=== PATIENT | female | born 1945 | race Caucasian/White ===

== ENCOUNTER 2016-10-23 16:28 | Emergency (ER) | payer BC ==
[~2016-10-23] VITALS: Ht 165.1 cm; Wt 64.0 kg
[2016-10-23 16:28] VITALS: TEMP 36.3; Ht 165.1 cm; Wt 64.0 kg
[2016-10-23] MEDS ORDERED: SODIUM CHLORIDE 0.9% 1000ML 1,000 ML IV STA (16:44)
[2016-10-23 17:02] LABS: HEMATOCRIT 39.4 % (37-47); MEAN CELL VOLUME 90.8 fL (80-100); MEAN CORPUSCULAR HEMOGLOBIN 31.8 pg (25-34); MEAN PLATELET VOLUME 9.3 fL (7.4-10.4); PLATELET COUNT 226 K/uL (130-400); RED BLOOD COUNT 4.34 M/uL (4.2-5.4); WHITE BLOOD COUNT 6.97 K/uL (4.8-10.8)
[2016-10-23 17:11] LABS: PARTIAL THROMBOPLASTIN RATIO 0.9; PROTHROMBIN TIME (PATIENT) 11.2 SECONDS (9.0-12.0)
[2016-10-23 17:19] LABS: ALT/SGPT 33 U/L (12-78); AST/SGOT 26 U/L (15-37); BLOOD UREA NITROGEN 22 mg/dl (7-18); BUN/CREATININE RATIO 33.1 (10-20); CALCIUM 8.9 mg/dl (8.5-10.1); CARBON DIOXIDE 23 mmol/L (21-32); CHLORIDE 104 mmol/L (98-107); CREATININE 0.66 mg/dl (0.60-1.20); GLUCOSE 92 mg/dl (70-99); SODIUM 140 mmol/L (136-145)
[2016-10-23 17:21] LABS: BASO % 0.3 %; BASO ABS # 0.02 K/uL (0-0.2); COMPLETE YES; LYMPH % 17.9 %; LYMPH ABS # 1.25 K/uL (1.2-3.4); MONO % 8.8 %
[2016-10-23] MEDS ORDERED: ZINC1TAB PO (17:24)
[2016-10-23] MEDS ORDERED: MULT-188 PO (17:24)
[2016-10-23] MEDS ORDERED: CYCL0.052 OP (17:24)
[2016-10-23] MEDS ORDERED: CALC-51 PO (17:24)
[2016-10-23] MEDS ORDERED: DOXY100T PO (17:24)
[2016-10-23] MEDS ORDERED: B-CO1CAP17 PO (17:24)
[2016-10-23] MEDS ORDERED: ASCO250C3 PO (17:24)
[2016-10-23] MEDS ORDERED: CHOL1000 PO (17:24)
[2016-10-23] MEDS ORDERED: MAGN400T6 PO (17:24)
[2016-10-23] MEDS ORDERED: ASPI325T39 PO (17:24)
[2016-10-23] MEDS ORDERED: OMEG10007 PO (17:24)
[2016-10-23 17:27] LABS: ALKALINE PHOSPHATASE 76 U/L (45-117); CKMB/CK RATIO 6.5 (0-3.0)
--- NOTE | 2016-10-23 17:38 | DIAGNOSTIC IMAGING REPORT ---
CHEST ONE VIEW PORTABLE CLINICAL HISTORY: Altered mental status, weakness. COMPARISON STUDY: No previous studies for comparison. FINDINGS: The heart is mildly enlarged. There is mild interstitial thickening. There is no lobar consolidation. There are no pleural effusions.[ IMPRESSION: Cardiomegaly and mild interstitial thickening. No evidence of focal pulmonary consolidation Electronically signed by: Ravin Joy M.D. 10/23/2016 5:36 PM Dictated Date/Time: 10/23/2016 5:36 PM
[2016-10-23 18:02] LABS: URINE APPEARANCE CLEAR (CLEAR); URINE BILIRUBIN NEG (NEG); URINE COLOR YELLOW; URINE NITRITE NEG (NEG); URINE PH 5.5 (4.5-7.5); URINE SPECIFIC GRAVITY 1.006 (1.000-1.030); UROBILINOGEN NEG (NEG); ZZUR CULT IF INDIC CLEAN CATCH NO
[2016-10-23 18:03] LABS: MANUAL MICROSCOPIC REQUIRED? NO; REVIEW REQ? NO
--- NOTE | 2016-10-23 19:17 | DIAGNOSTIC IMAGING REPORT ---
ULTRASOUND OF THE CAROTID ARTERIES CLINICAL HISTORY: Right facial and hand numbness COMPARISON STUDY: None. TECHNIQUE: Real-time, grayscale, and color Doppler sonography of the carotid arteries was performed. Imaging reviewed in the transverse and longitudinal planes. NASCET criteria was utilized for stenosis calcification. FINDINGS: There is minimal atherosclerotic plaque present . The peak systolic velocity within the right internal carotid artery is 53 cm/sec. The systolic velocity ratio of right internal to common carotid artery is 0.7. The peak systolic velocity within the left internal carotid artery is 78 cm/sec. The systolic velocity ratio left internal to common carotid artery is 0.8. Antegrade flow is seen in the vertebral arteries. The external carotid arteries are patent. Blood pressure in the right arm measured 142 mm/Hg. Blood pressure in the left arm measured 155 mm/Hg. IMPRESSION: No evidence of hemodynamically significant carotid stenosis. Electronically signed by: Ravin Joy M.D. 10/23/2016 7:15 PM Dictated Date/Time: 10/23/2016 7:14 PM
--- NOTE | 2016-10-23 19:36 | DIAGNOSTIC IMAGING REPORT ---
MRI OF THE BRAIN WITHOUT CONTRAST CLINICAL HISTORY: Right hand and facial numbness. Possible stroke. COMPARISON STUDY: None. FINDINGS: Sagittal T1, axial diffusion, proton density and T2 weighted axial, coronal FLAIR, and axial T1-weighted images were acquired. No intra or extra-axial mass lesions are visualized Axial diffusion-weighted images reveal no evidence of acute or subacute infarction. There is no evidence of ventricular dilatation. Proton density T2-weighted and FLAIR images reveal scattered foci of increased T2 signal within the white matter, likely on a small vessel basis. There are no abnormal flow voids. IMPRESSION: 1. No acute intracranial findings 2. No evidence of acute or subacute infarction 3. No evidence of intracranial mass on this noncontrast study Electronically signed by: Ravin Joy M.D. 10/23/2016 7:35 PM Dictated Date/Time: 10/23/2016 7:32 PM
[2016-10-23 19:42] VITALS: BP 167/112; PULSE 70; O2SAT 97
--- NOTE | 2016-10-23 20:02 | EMERGENCY ROOM VISIT NOTE ---
History Report prepared by Henry: Kenney Santana Under the Supervision of: Dr. Chau Ragsdale D.O. First contact with patient: 16:34 Chief Complaint: STROKE SYMPTOMS Stated Complaint: STROKE History of Present Illness The patient is a 71 year old female who presents to the Emergency Room with complaints of improving stroke symptoms occurring around 1400 today after climbing a hill on her bike. The patient states that she was biking with friends like usual, and after a difficult part she started having numbness and weakness in her right hand, arm, and face. She states that afterwards she biked home another 25 miles afterwards, and she states that her strength was not as great as usual. She states that her numbness is now only in her hands, and she took aspirin when she got home. The patient additionally states that she was bit by a tick 5-6 days ago, and it was taken out by her doctor, and she was put on antibiotics. Additionally, she states that she had a stroke in 1999, and she has a clotting disorder and sciatica. The patient states that she has a few drinks a day, though she denies drinking or any daily medications. Source of History: patient Onset: 1400 Position: other (global) Quality: other (stroke symptoms) Timing: other (improving) Associated Symptoms: + fatigue Note: Associated symptoms: Right hand, arm and facial weakness. Review of Systems See HPI for pertinent positives & negatives. A total of 10 systems reviewed and were otherwise negative. Past Medical & Surgical Medical Problems: (1) Clotting disorder (2) Sciatica Family History Diabetes mellitus Social History Smoking Status: Former Smoker Alcohol Use: occasionally Marital Status: Occupation Status: employed Current/Historical Medications Scheduled Ascorbic Acid (Vitamin C), 1 TAB PO DAILY Aspirin (Aspirin Ec), 650 MG PO TODAY Calcium Carbonate-Vitamin D (Calcium), 1 TAB PO BID Cholecalciferol (Vitamin D3), 1 TAB PO DAILY Cyclosporine (Ophth) (Restasis), 1 DROP OP BID Doxycycline Hyclate (Doxycycline Hyclate), 1 TAB PO BID Fish Oil (Goodhue-3), 3 CAP PO DAILY Magnesium Oxide (Mag-Ox), 400 MG PO DAILY Multiple Vitamins W/ Minerals (Ocuvite), 1 TAB PO DAILY Vitamin B Cmplx/Vitc/Folic Ac (Nephrocaps), 1 CAP PO DAILY Zinc Gluconate (Zinc), 1 TAB PO DAILY Allergies Coded Allergies: Cefuroxime (Verified Allergy, Intermediate, RASH, 10/23/16) Physical Exam Vital Signs Date Time Temp Pulse Resp B/P Pulse Ox O2 Delivery O2 Flow Rate FiO2 10/23/16 19:42 70 18 167/112 97 Room Air 10/23/16 17:45 136/100 10/23/16 17:43 76 94 10/23/16 17:15 146/95 10/23/16 17:13 75 96 10/23/16 17:03 137/94 10/23/16 17:02 82 18 137/94 94 Room Air 10/23/16 17:01 136/102 10/23/16 16:58 84 10/23/16 16:44 87 10/23/16 16:43 88 10/23/16 16:28 36.3 93 20 172/113 98 Room Air Physical Exam VITAL SIGNS: were reviewed as above. GENERAL:Non-toxic in appearance. SKIN: Warm dry and pink. HEAD: Normocephalic and atraumatic. OROPHARYNX: Is clear and moist NECK: Supple without lymphadenopathy or meningismus. LUNGS: clear. HEART: Regular rate and rhythm. ABDOMEN: Soft and nontender. EXTREMITIES: Warm and well perfused. NEUROLOGICALLY: Awake alert and oriented without focal deficit. Cranial nerves 2 -12 are intact. There is no pronator drift. Cerebellar testing is within normal limits. There is no nystagmus. There is no facial droop. Speech is clear. Vision is grossly normal. MUSCULOSKELETAL: Good muscle tone. No evidence of trauma. Medical Decision & Procedures ER Provider Diagnostic Interpretation: Radiology results as stated below per my review and radiologist interpretation: CHEST ONE VIEW PORTABLE CLINICAL HISTORY: Altered mental status, weakness. COMPARISON STUDY: No previous studies for comparison. FINDINGS: The heart is mildly enlarged. There is mild interstitial thickening. There is no lobar consolidation. There are no pleural effusions.[ IMPRESSION: Cardiomegaly and mild interstitial thickening. No evidence of focal pulmonary consolidation Electronically signed by: Ravin Joy M.D. 10/23/2016 5:36 PM Dictated Date/Time: 10/23/2016 5:36 PM MRI OF THE BRAIN WITHOUT CONTRAST CLINICAL HISTORY: Right hand and facial numbness. Possible stroke. COMPARISON STUDY: None. FINDINGS: Sagittal T1, axial diffusion, proton density and T2 weighted axial, coronal FLAIR, and axial T1-weighted images were acquired. No intra or extra-axial mass lesions are visualized Axial diffusion-weighted images reveal no evidence of acute or subacute infarction. There is no evidence of ventricular dilatation. Proton density T2-weighted and FLAIR images reveal scattered foci of increased T2 signal within the white matter, likely on a small vessel basis. There are no abnormal flow voids. IMPRESSION: 1. No acute intracranial findings 2. No evidence of acute or subacute infarction 3. No evidence of intracranial mass on this noncontrast study Electronically signed by: Ravin Joy M.D. 10/23/2016 7:35 PM Dictated Date/Time: 10/23/2016 7:32 PM ULTRASOUND OF THE CAROTID ARTERIES CLINICAL HISTORY: Right facial and hand numbness COMPARISON STUDY: None. TECHNIQUE: Real-time, grayscale, and color Doppler sonography of the carotid arteries was performed. Imaging reviewed in the transverse and longitudinal planes. NASCET criteria was utilized for stenosis calcification. FINDINGS: There is minimal atherosclerotic plaque present . The peak systolic velocity within the right internal carotid artery is 53 cm/sec. The systolic velocity ratio of right internal to common carotid artery is 0.7. The peak systolic velocity within the left internal carotid artery is 78 cm/sec. The systolic velocity ratio left internal to common carotid artery is 0.8. Antegrade flow is seen in the vertebral arteries. The external carotid arteries are patent. Blood pressure in the right arm measured 142 mm/Hg. Blood pressure in the left arm measured 155 mm/Hg. IMPRESSION: No evidence of hemodynamically significant carotid stenosis. Electronically signed by: Ravin Joy M.D. 10/23/2016 7:15 PM Dictated Date/Time: 10/23/2016 7:14 PM Laboratory Results 10/23/16 16:49 Red Blood Count 4.34, Mean Corpuscular Volume 90.8, Mean Corpuscular Hemoglobin 31.8, Mean Corpuscular Hemoglobin Concent 35.0, Mean Platelet Volume 9.3, Neutrophils (%) (Auto) 72.0, Lymphocytes (%) (Auto) 17.9, Monocytes (%) (Auto) 8.8, Eosinophils (%) (Auto) 1.0, Basophils (%) (Auto) 0.3, Neutrophils # (Auto) 5.02, Lymphocytes # (Auto) 1.25, Monocytes # (Auto) 0.61, Eosinophils # (Auto) 0.07, Basophils # (Auto) 0.02 10/23/16 16:49 Test 10/23/16 16:49 10/23/16 17:45 White Blood Count 6.97 K/uL (4.8-10.8) Red Blood Count 4.34 M/uL (4.2-5.4) Hemoglobin 13.8 g/dL (12.0-16.0) Hematocrit 39.4 % (37-47) Mean Corpuscular Volume 90.8 fL (80-100) Mean Corpuscular Hemoglobin 31.8 pg (25-34) Mean Corpuscular Hemoglobin Concent 35.0 g/dl (32-36) Platelet Count 226 K/uL (130-400) Mean Platelet Volume 9.3 fL (7.4-10.4) Neutrophils (%) (Auto) 72.0 % Lymphocytes (%) (Auto) 17.9 % Monocytes (%) (Auto) 8.8 % Eosinophils (%) (Auto) 1.0 % Basophils (%) (Auto) 0.3 % Neutrophils # (Auto) 5.02 K/uL (1.4-6.5) Lymphocytes # (Auto) 1.25 K/uL (1.2-3.4) Monocytes # (Auto) 0.61 K/uL (0.11-0.59) Eosinophils # (Auto) 0.07 K/uL (0-0.5) Basophils # (Auto) 0.02 K/uL (0-0.2) RDW Standard Deviation 44.6 fL (36.4-46.3) RDW Coefficient of Variation 13.5 % (11.5-14.5) Immature Granulocyte % (Auto) 0.0 % Immature Granulocyte # (Auto) 0.00 K/uL (0.00-0.02) Prothrombin Time 11.2 SECONDS (9.0-12.0) Prothromb Time International Ratio 1.0 (0.9-1.1) Activated Partial Thromboplast Time 23.4 SECONDS (21.0-31.0) Partial Thromboplastin Ratio 0.9 Anion Gap 13.0 mmol/L (3-11) Est Creatinine Clear Calc Drug Dose 72.4 ml/min Estimated GFR () 104.5 Estimated GFR (Non- 90.1 BUN/Creatinine Ratio 33.1 (10-20) Calcium Level 8.9 mg/dl (8.5-10.1) Magnesium Level 2.0 mg/dl (1.8-2.4) Total Bilirubin 0.5 mg/dl (0.2-1) Direct Bilirubin 0.1 mg/dl (0-0.2) Aspartate Amino Transf (AST/SGOT) 26 U/L (15-37) Alanine Aminotransferase (ALT/SGPT) 33 U/L (12-78) Alkaline Phosphatase 76 U/L (45-117) Total Creatine Kinase 126 U/L (26-192) Creatine Kinase MB 8.2 ng/ml (0.5-3.6) Creatine Kinase MB Ratio 6.5 (0-3.0) Troponin I < 0.015 ng/ml (0-0.045) Total Protein 7.1 gm/dl (6.4-8.2) Albumin 3.9 gm/dl (3.4-5.0) Lipase 148 U/L (73-393) Thyroid Stimulating Hormone (TSH) 2.040 uIu/ml (0.300-4.500) Urine Color YELLOW Urine Appearance CLEAR (CLEAR) Urine pH 5.5 (4.5-7.5) Urine Specific [place] 1.006 (1.000-1.030) Urine Protein NEG (NEG) Urine Glucose (UA) NEG (NEG) Urine Ketones NEG (NEG) Urine Occult Blood NEG (NEG) Urine Nitrite NEG (NEG) Urine Bilirubin NEG (NEG) Urine Urobilinogen NEG (NEG) Urine Leukocyte Esterase SMALL (NEG) Urine WBC (Auto) 1-5 /hpf (0-5) Urine RBC (Auto) 0-4 /hpf (0-4) Urine Hyaline Casts (Auto) 0 /lpf (0-5) Urine Epithelial Cells (Auto) 10-20 /lpf (0-5) Urine Bacteria (Auto) NEG (NEG) Laboratory results as stated above per my review. Medications Administered Medications (Trade) Dose Ordered Sig/Ami Route Start Time Stop Time Status Last Admin Dose Admin Sodium Chloride (Nss 1000ml) 1,000 ml @ 999 mls/hr Q1H1M STAT IV 10/23/16 16:44 10/23/16 17:44 DC 10/23/16 16:58 999 MLS/HR ECG Indication: other (stroke symptoms) Rate (beats per minute): 76 Rhythm: normal sinus Findings: no acute ischemic change, no ectopy ED Course 1634: Previous medical records were reviewed. The patient was evaluated in room B9. A complete history and physical examination was performed. 1644: Sodium Chloride 1000 ml @ 999 mls/hr IV 2004: On reevaluation, the patient is resting. I discussed the results and findings with the patient. She verbalized agreement of the treatment plan. She was discharged home. Medical Decision Differential includes acute coronary syndrome, myocardial infarction, CVA, TIA, anemia, infection, pneumonia, UTI, pyelonephritis, poor nutrition, dehydration, electrolyte disturbance,hypoglycemia. This is a 71-year-old female who presents to the ED with a chief complaint of some tingling in the right hand and some numbness in the right cheek area while riding a bicycle. The patient states that around 2 PM today she was riding her bicycle up a hard heel. She developed the right hand tingling and right face tingling around that time. It persisted and around 1600 she got home. She came in for evaluation of her symptoms. Most of her symptoms have improved except for she has now some tingling in her right middle finger. She has no other specific complaints. She is currently on doxycycline for a recent tick exposure. This was about a week ago. The patient's current blood pressure was elevated when she arrived. It was 172/113. A complete neurological exam was unremarkable. Repeat blood pressure about a half-hour after she arrived was normal. Her CBC is normal. Chemistry panel revealed an elevated BUN of 22. MRI of the brain did not show any acute process. Carotid ultrasounds also did not show any hemodynamic compromise. The patient was told the results. She is felt to be stable for discharge. She only reports residual numbness in the right middle finger at this time. No facial symptoms. Impression Primary Impression: Paresthesia of hand Additional Impression: Facial paresthesia Scribe Attestation The scribe's documentation has been prepared under my direction and personally reviewed by me in its entirety. I confirm that the note above accurately reflects all work, treatment, procedures, and medical decision making performed by me. Departure Information Dispostion Home / Self-Care Referrals Darrin Santizo M.D. (PCP) Forms HOME CARE DOCUMENTATION FORM, IMPORTANT VISIT INFORMATION Patient Instructions My [facility] Additional Instructions Follow-up with your doctor for further care and evaluation in 1-2 days. Return to the emergency department for worsening or new symptoms or any concerns. You have been examined and treated today on an emergency basis only. This is not a substitute for, or an effort to provide, complete comprehensive medical care. It is impossible to recognize and treat all injuries or illnesses in a single emergency department visit. It is therefore important that you follow up closely with your doctor. Call as soon as possible for an appointment. Problem Qualifiers
== END 2016-10-23 20:10 | disposition home or self-care (01) ==
LOC: C.EDB 16:28
DX: R20.2 Paresthesia of skin (principal); D68.9 Coagulation defect, unspecified; M54.30 Sciatica, unspecified side; Z83.3 Family history of diabetes mellitus; Z87.891 Personal history of nicotine dependence; Z79.82 Long term (current) use of aspirin; Z79.899 Other long term (current) drug therapy

== ENCOUNTER → 2016-10-24 | Outpatient (CLI) | payer BC ==
[~2016-10-24] MED LIST: ASCO250C3 PO; ASPI325T39 PO; ASPI81TA28 PO; B-CO1CAP17 PO; CALC-51 PO; CHOL1000 PO; CYCL0.052 OP; DOXY100T PO; LEVE500T PO; MAGN400T6 PO; MULT-188 PO; OMEG10007 PO; PHYT100T PO; VITBC PO; ZINC1TAB PO
[2016-10-24 18:43] LABS: HEMATOCRIT 39.3 % (37-47); MEAN CELL VOLUME 91.8 fL (80-100); MEAN CORPUSCULAR HEMOGLOBIN 32.5 pg (25-34); MEAN CORPUSCULAR HGB CONC 35.4 g/dl (32-36); MEAN PLATELET VOLUME 9.7 fL (7.4-10.4); PLATELET COUNT 231 K/uL (130-400); RED BLOOD COUNT 4.28 M/uL (4.2-5.4); WHITE BLOOD COUNT 4.08 K/uL (4.8-10.8)
--- NOTE | 2016-10-24 18:43 | DIAGNOSTIC IMAGING REPORT ---
LEFT LOWER EXTREMITY VENOUS DOPPLER CLINICAL HISTORY: Left leg pain and swelling. COMPARISON STUDY: No previous studies for comparison. TECHNIQUE: Sonography of the deep venous system of the left lower extremity was performed. Compression and augmentation were evaluated. FINDINGS: The left common femoral, superficial femoral and popliteal veins were compressible. Augmentation was normal. Flow was shown within the deep calf vessels. IMPRESSION: No evidence of deep venous thrombus within the left lower extremity. Electronically signed by: Andres Olivares M.D. 10/24/2016 6:42 PM Dictated Date/Time: 10/24/2016 6:42 PM
[2016-10-24 19:36] LABS: POTASSIUM 4.1 mmol/L (3.5-5.1); SODIUM 141 mmol/L (136-145)
[2016-10-24 19:41] LABS: AST/SGOT 26 U/L (15-37)
[2016-10-24 19:42] LABS: ALB/GLOB RATIO 1.3 (0.9-2); ALKALINE PHOSPHATASE 75 U/L (45-117); ALT/SGPT 32 U/L (12-78); BLOOD UREA NITROGEN 18 mg/dl (7-18); CALCIUM 9.1 mg/dl (8.5-10.1); CARBON DIOXIDE 28 mmol/L (21-32); CHLORIDE 104 mmol/L (98-107); CHOLESTEROL 201 mg/dl (0-200); CREATININE 0.68 mg/dl (0.60-1.20); GLUCOSE 85 mg/dl (70-99); HDL CHOLESTEROL 101 mg/dl; LDL CHOLESTEROL CALCULATED 80 mg/dl; TRIGLYCERIDES 101 mg/dl (0-150); VERY LOW DENSITY LIPOPROT CALC 20 mg/dl
[2016-10-27 12:07] LABS: 18KDIGG BAND NONREACTIVE (NONREACTIVE); 23KDIGG BAND REACTIVE (NONREACTIVE); 23KDIGM BAND NONREACTIVE (NONREACTIVE); 28KDIGG BAND NONREACTIVE (NONREACTIVE); 30KDIGG BAND NONREACTIVE (NONREACTIVE); 39KDIGG BAND NONREACTIVE (NONREACTIVE); 39KDIGM BAND NONREACTIVE (NONREACTIVE); 41KDIGG BAND REACTIVE (NONREACTIVE); 41KDIGM BAND NONREACTIVE (NONREACTIVE); 45KDIGG BAND REACTIVE (NONREACTIVE); 58KDIGG BAND NONREACTIVE (NONREACTIVE); 66KDIGG BAND NONREACTIVE (NONREACTIVE); 93KDIGG BAND NONREACTIVE (NONREACTIVE)
--- NOTE | 2016-10-28 13:34 | CODING QUERY MEDICAL NECESSITY ---
SUPPORTING DIAGNOSIS NEEDED A supporting diagnosis is required for the test/procedure performed on this patient in order for us to be reimbursed by the patient's insurance. Please provide a supporting diagnosis for the following test/procedure listed below next to the test name along with your signature. *If there is no additional diagnosis for this patient that would support the following test/procedure please document that below next to the test/procedure. Test(s)/Procedure(s) that require a supporting diagnosis: * VITAMIN B-12 LEVEL DIAGNOSIS: * DOS: 10/24/16 Provider Signature: Date: Thank you Francie Salinas Health Information Management Once completed, please kindly fax back to [phone] For questions please call [phone]
== END | disposition home or self-care (01) ==
LOC: C.ULTR 17:53
PROVIDERS: ATTEND Family Medicine
DX: M79.605 Pain in left leg (principal); R60.0 Localized edema; A69.20 Lyme disease, unspecified; M25.50 Pain in unspecified joint; D51.9 Vitamin B12 deficiency anemia, unspecified

== ENCOUNTER 2016-10-30 12:15 | Inpatient (IN) | payer BC, OTHER ==
[~2016-10-30] VITALS: Ht 165.1 cm; Wt 61.6 kg
[~2016-10-30 12:15] MED LIST changes: -ASPI81TA28 PO; -LEVE500T PO; -PHYT100T PO; -VITBC PO
[2016-10-30] MEDS ORDERED: SODIUM CHLORIDE 0.9% 1000ML 1,000 ML IV SCH (12:36)
[2016-10-30] MEDS ORDERED: VITBC PO (12:43)
[2016-10-30] MEDS ORDERED: ASPI81TA28 PO (12:43)
[2016-10-30] MEDS ORDERED: PHYT100T PO (12:43)
[2016-10-30 13:05] LABS: BASO % 0.3 %; BASO ABS # 0.01 K/uL (0-0.2); COMPLETE YES; EOS % 3.6 %; HEMATOCRIT 43.3 % (37-47); IG% 0.3 %; LYMPH % 46.3 %; LYMPH ABS # 1.69 K/uL (1.2-3.4); MEAN CELL VOLUME 92.1 fL (80-100); MEAN CORPUSCULAR HEMOGLOBIN 32.8 pg (25-34); MEAN CORPUSCULAR HGB CONC 35.6 g/dl (32-36); MEAN PLATELET VOLUME 9.7 fL (7.4-10.4); MONO % 8.2 %; NEUT % 41.3 %; PLATELET COUNT 250 K/uL (130-400); WHITE BLOOD COUNT 3.65 K/uL (4.8-10.8)
--- NOTE | 2016-10-30 13:10 | DIAGNOSTIC IMAGING REPORT ---
CHEST ONE VIEW PORTABLE CLINICAL HISTORY: Stroke. COMPARISON STUDY: Chest radiograph October 23, 2016. FINDINGS: A nodular density projecting of the right lower lung likely reflects a nipple shadow. Lung volumes are normal. There is no consolidation or evidence of pulmonary edema. Mild to moderate cardiomegaly is noted. IMPRESSION: No acute cardiopulmonary findings. Electronically signed by: Andres Olivares M.D. 10/30/2016 1:08 PM Dictated Date/Time: 10/30/2016 1:06 PM
[2016-10-30 13:14] LABS: INR 1.1 (0.9-1.1); PARTIAL THROMBOPLASTIN RATIO 0.9; PROTHROMBIN TIME (PATIENT) 11.3 SECONDS (9.0-12.0)
[2016-10-30 13:23] LABS: BENZODIAZEPINE, URINE NEG (NEG); COCAINE,URINE NEG (NEG); PHENCYCLIDINE, URINE NEG (NEG)
[2016-10-30 13:33] LABS: BLOOD UREA NITROGEN 11 mg/dl (7-18); CALCIUM 9.4 mg/dl (8.5-10.1); CARBON DIOXIDE 31 mmol/L (21-32); CHLORIDE 100 mmol/L (98-107); CKMB/CK RATIO 6.6 (0-3.0); CREATININE 0.76 mg/dl (0.60-1.20); GLUCOSE 115 mg/dl (70-99); POTASSIUM 3.9 mmol/L (3.5-5.1); SODIUM 139 mmol/L (136-145)
--- NOTE | 2016-10-30 13:44 | DIAGNOSTIC IMAGING REPORT ---
CT OF THE HEAD WITHOUT CONTRAST CLINICAL HISTORY: Right facial droop and numbness. Stroke. COMPARISON STUDY: MRI of the brain October 23, 2016. CT DOSE: 537.48 mGy.cm TECHNIQUE: Helical axial images of the head were obtained without IV contrast. Automated exposure control was utilized for the study. FINDINGS: No acute intracranial hemorrhage, midline shift or mass effect is present. Ventricular system is normal. Basilar cisterns are patent. There are no extra-axial collections. There are no CT findings to suggest acute dural sinus thrombosis or acute territorial infarct. Visualized portions of the sinuses and mastoid air cells are clear. IMPRESSION: No acute intracranial findings. Electronically signed by: Andres Olivares M.D. 10/30/2016 1:42 PM Dictated Date/Time: 10/30/2016 1:40 PM
[2016-10-30] MEDS ORDERED: CLOPIDOGREL BISULFATE 75 MG TAB PO ONE (14:30)
[2016-10-30] MEDS ORDERED: ONDANSETRON INJ 2 MG/ML 2 ML VIAL IV PRN (14:45)
[2016-10-30] MEDS ORDERED: PHARMACIST DISCHARGE MED REC CONSULT PRN (14:45)
[2016-10-30] MEDS ORDERED: ALUMINUM/MAGNESIUM/SIMETH (MAALOX MAX) 30 ML UDC PO PRN (14:45)
[2016-10-30] MEDS ORDERED: MAGNESIUM HYDROXIDE SUSP 30 ML UDC PO PRN (14:45)
[2016-10-30] MEDS ORDERED: ACETAMINOPHEN 325 MG TAB PO PRN (14:45)
[2016-10-30 15:31] VITALS: O2SAT 96
[2016-10-30 15:38] VITALS: Ht 165.1 cm; Wt 61.6 kg
[2016-10-30 16:00] VITALS: BP 158/96; PULSE 53; TEMP 37; O2SAT 96
[2016-10-30 16:35] VITALS: BP_SYST 180; BP_SYST 213; BP_DIAS 107; BP_DIAS 82; PULSE 82; O2SAT 95
[2016-10-30] MEDS ORDERED: HydrALAZINE HCL 20 MG/ML VIAL IV PRN (16:45)
[2016-10-30 16:55] VITALS: BP 150/88; PULSE 57; O2SAT 96
--- NOTE | 2016-10-30 17:37 | HISTORY & PHYSICAL EXAMINATION ---
DATE OF ADMISSION: 10/30/2016 CHIEF COMPLAINT: Intermittent numbness of her fingers, fluttering of her eye, palpitations and numbness of the right side of her face which have resolved. ADMITTING DIAGNOSIS: Possible stroke. HISTORY OF PRESENT ILLNESS: Mrs. Thayer is a 71-year-old female who had the above listed symptoms today beginning around 11:30 while she was out for a bicycle ride. She was in the ER 1 week ago with very similar symptoms with complete resolution. She was discharged home. The patient has a significant past history of having a similar event in 1999, at which time she was admitted to the hospital and a CT and MRI confirmed an 8-10 mm cavernous hemangioma in the right frontal convexity. The patient has been on aspirin since that time and follows with Dr. Little. The patient has been doing well but this spring she has had 2 episodes of a tick bite on her body most recently, being treated with doxycycline [address] Santizo. She states that in the past she has documented Lyme infections in the past and this was confirmed in our hospital record. She currently has complete resolution of her symptoms. She said this was more involved as she felt unstable riding her bike when they occurred, I asked if she felt palpitations, she said she believes she did. Otherwise, her general health has been unremarkable. The only new medication over the last few months has been the addition of vitamin K to her vitamin management by Dr. Santizo. PAST MEDICAL HISTORY: As mentioned above plus she has Lyme disease. MEDICATIONS: Aspirin 81 a day, fish oil 3 gm a day, magnesium oxide 400 a day, Nephrocaps daily, vitamin B complex daily, vitamin C daily, calcium and vitamin D daily, doxycycline 100 b.i.d., and on Monday. SOCIAL HISTORY: Socially does not smoke or drink. Is very active. FAMILY HISTORY: Positive for diabetes. REVIEW OF SYSTEMS: Ten systems were reviewed and are negative exception of some muscular pain and sciatica pain which she attributes to being a result of a previous ski trip where she over extended herself. PHYSICAL EXAMINATION: GENERAL: She is pleasant, looks younger than stated age. VITAL SIGNS: Temperature is 36.5, pulse 60, respirations 20, BP 149/91, O2 sat 98 on room air. HEENT: PERRL, EOMI. Oropharynx clear. NECK: Without lymphadenopathy, JVD, thyromegaly. HEART: Regular without murmurs, clicks, rubs or gallops. LUNGS: Clear without wheezes or crackles. Good air movement. SPINE: Nontender, no CV angle tenderness. ABDOMEN: Normoactive bowel sounds, soft, nontender, nondistended, no organomegaly. EXTREMITIES: Without cyanosis, clubbing or edema. NEUROLOGICALLY: She is awake, alert and appropriate. Cranial nerves II through XII are intact. Equal symmetrical strength and sensation. She has no palmar drift. [id number] is intact. There is no facial droop noted. She has good sensation to her hand, she has addiction professional strength 5/5 and equal bilaterally. SKIN: Without lesions, growth, bruises or bleeding. LABORATORY DATA: White count is 3.6, H\T\H 15 and 43, platelet count 250. BUN and creatinine 11 and 0.7, glucose 121, normal tox screen. Normal coags, normal troponin. EKG showed right bundle-branch block. Chest x-ray unremarkable. CT scan of the head is unremarkable. ASSESSMENT: A 71-year-old female here with transient neurological symptoms with a history of cavernous hemangioma. PLAN: The symptoms occur with exercise, we will monitor in a monitored setting to determine if arrhythmia could be at play. Regarding her neurological status, we will bring her in under stroke order set, will add Plavix to her aspirin and start atorvastatin and MRI will be obtained and as well as a neurology consult and echocardiogram. Certainly given the fact that she has this hemangioma, wondering if a partial seizure could be also at risk, will discuss this with neurology. Regarding her Lyme disease, we will complete her Lyme course, this is very important her. Regarding her vitamins, will hold the vitamin K as this does affect her clotting. There was a mention that she may have had some abnormal clotting profile per Dr. Santizo in the computer, we have things done in 1999 and 2004 and they were antithrombin III was normal, plasminogen activator inhibitor was normal and previous protein C\T\S were normal. Her most recent coag studies are just PTT and PT and they are normal. DVT prevention is going to be early ambulation. If she is here for more than 1 day, we may begin chemical means that she is a very active person. She is a full code. MTDD
[2016-10-30] MEDS ORDERED: GADAVIST IV PRN (17:45)
[2016-10-30] MEDS ORDERED: IV FLUIDS COMPLETED PRN (18:00)
--- NOTE | 2016-10-30 18:07 | DIAGNOSTIC IMAGING REPORT ---
Brain MRI WITH AND WITHOUT CONTRAST HISTORY: Stroke symptoms. Right facial droop. TECHNIQUE: Multiplanar multisequence MRI of the brain was performed both before and after the intravenous administration of contrast. COMPARISON STUDY: Head CT 10/30/2016. Brain MRI FINDINGS: There is no mass, hematoma, midline shift, or acute infarct. The paranasal sinuses are clear. The mastoid or cells are clear. The ventricles and sulci demonstrate mild age-related involutional changes. Scattered foci of T2 hyperintensity seen within the periventricular and subcortical white matter are nonspecific but suggestive of mild microvascular ischemic changes. The major vascular flow voids at the skull base are well-maintained. No abnormal enhancement. 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 This is considered a normal variant. IMPRESSION: No significant change compared to the prior study. No acute intracranial abnormality. Electronically signed by: Matheus Womack M.D. 10/30/2016 6:05 PM Dictated Date/Time: 10/30/2016 5:52 PM
--- NOTE | 2016-10-30 18:24 | EMERGENCY ROOM VISIT NOTE ---
History Report prepared by Henry: Tye Greco Under the Supervision of: Dr. Gabriele Dodge M.D. First contact with patient: 12:23 Chief Complaint: STROKE SYMPTOMS Stated Complaint: Episode Right facial droop,numbness History of Present Illness The patient is a 71 year old female who presents to the Emergency Room with complaints of right sided facial and finger numbness that began today at 1130, one hour prior to arrival. The patient states that she was out for a bike ride when she began to experience a flutter in her right eye. Shortly after her eye began to flutter she had numbness in the third and fourth digit of her right hand and in the right side of her face. She also noted feeling her heart beating rapidly and noticed that her balance was off while she was on the bike. She does not think that her lack of balance felt like vertigo. Her friends that she was riding with told her that she was not able to speak for a short time after her symptoms onset. The patient states that after getting off of her bike her symptoms resolved spontaneously after 5 minutes. The patient was in the emergency department on October 23, one week prior to this visit for similar symptoms. On October 23 the patient was out for a bike ride and started to experience numbness in her right arm and face. She denies noticing any numbness in the arm during this episode. The patient did have a prior stroke in 1999 and has been diagnosed with the PA-1 gene mutation. She is currently on daily Baby Aspirin and Doxycycline for a tick bite. She denies being on any other anticoagulants and states that her her original still occurred while she was on hormone replacement therapy. The patient states that her symptoms are resolved at this time and she feels well. Source of History: patient Onset: One hour EMERGENCY PLANNING AND RESPONSE MANAGER Position: finger(s) (3rd and 4th digit Right Hand), other (Face (right)) Quality: numbness Timing: resolved Note: Dizziness Review of Systems See HPI for pertinent positives & negatives. A total of 10 systems reviewed and were otherwise negative. Past Medical & Surgical Medical Problems: (1) Clotting disorder (2) Sciatica (3) Stroke Family History Diabetes mellitus Social History Smoking Status: Former Smoker Alcohol Use: occasionally Marital Status: Occupation Status: employed Current/Historical Medications Scheduled Ascorbic Acid (Vitamin C), 1 TAB PO DAILY Aspirin (Aspirin Ec), 81 MG PO DAILY Calcium Carbonate-Vitamin D (Calcium), 1 TAB PO BID Cholecalciferol (Vitamin D3), 1 TAB PO DAILY Cyclosporine (Ophth) (Restasis), 1 DROP OP BID Doxycycline Hyclate (Doxycycline Hyclate), 1 TAB PO BID Fish Oil ([place]-3), 3 CAP PO DAILY Magnesium Oxide (Mag-Ox), 400 MG PO DAILY Multiple Vitamins W/ Minerals (Ocuvite), 1 TAB PO DAILY Phytonadione (Vitamin K), 1 TAB PO DAILY Vitamin B Cmplx/Vitc/Folic Ac (Nephrocaps), 1 CAP PO DAILY Vitamin B Complex (Vitamin B Complex), 1 TAB PO DAILY Zinc Gluconate (Zinc), 1 TAB PO DAILY Allergies Coded Allergies: Cefuroxime (Verified Allergy, Intermediate, RASH, 10/30/16) Physical Exam Vital Signs Date Time Temp Pulse Resp B/P Pulse Ox O2 Delivery O2 Flow Rate FiO2 10/30/16 14:30 60 21 149/91 98 Room Air 10/30/16 13:55 58 19 142/96 96 Room Air 10/30/16 12:57 56 10/30/16 12:24 97 Room Air 10/30/16 12:24 36.5 63 21 168/96 95 Room Air Physical Exam Constitutional: Vital signs reviewed. Eyes: Pupils are equal round reactive to light. Conjunctiva are noninjected. ENT: Pharynx is clear without erythema or exudate. Mucous membranes are moist. Neck supple without meningeal signs. Respiratory: Clear to auscultation bilaterally. Breath sounds are equal bilaterally. Cardiovascular: Regular rate and rhythm. No rubs or gallops. GI: Soft, nondistended and nontender. Bowel sounds are present. Musculoskeletal: No peripheral edema. No lower extremity tenderness. Integumentary: No cyanosis. Neurological: The patient is awake and alert. Cranial nerves II-XII are intact. Motor is 5 out of 5 all extremities. Sensation is intact to light touch all extremities. Normal speech. No pronator drift. No limb ataxia. Psychiatric: Normal affect. Medical Decision & Procedures ER Provider Diagnostic Interpretation: Radiology results as stated below per my review and the radiologist's interpretation: CHEST ONE VIEW PORTABLE CLINICAL HISTORY: Stroke. COMPARISON STUDY: Chest radiograph October 23, 2016. FINDINGS: A nodular density projecting of the right lower lung likely reflects a nipple shadow. Lung volumes are normal. There is no consolidation or evidence of pulmonary edema. Mild to moderate cardiomegaly is noted. IMPRESSION: No acute cardiopulmonary findings. Electronically signed by: Andres Olivares M.D. 10/30/2016 1:08 PM Dictated Date/Time: 10/30/2016 1:[address] OF THE HEAD WITHOUT CONTRAST CLINICAL HISTORY: Right facial droop and numbness. Stroke. COMPARISON STUDY: MRI of the brain October 23, 2016. CT DOSE: 537.48 mGy.cm TECHNIQUE: Helical axial images of the head were obtained without IV contrast. Automated exposure control was utilized for the study. FINDINGS: No acute intracranial hemorrhage, midline shift or mass effect is present. Ventricular system is normal. Basilar cisterns are patent. There are no extra-axial collections. There are no CT findings to suggest acute dural sinus thrombosis or acute territorial infarct. Visualized portions of the sinuses and mastoid air cells are clear. IMPRESSION: No acute intracranial findings. Electronically signed by: Andres Olivares M.D. 10/30/2016 1:42 PM Dictated Date/Time: 10/30/2016 1:40 PM Laboratory Results 10/30/16 11:56 Red Blood Count 4.70, Mean Corpuscular Volume 92.1, Mean Corpuscular Hemoglobin 32.8, Mean Corpuscular Hemoglobin Concent 35.6, Mean Platelet Volume 9.7, Neutrophils (%) (Auto) 41.3, Lymphocytes (%) (Auto) 46.3, Monocytes (%) (Auto) 8.2, Eosinophils (%) (Auto) 3.6, Basophils (%) (Auto) 0.3, Neutrophils # (Auto) 1.51, Lymphocytes # (Auto) 1.69, Monocytes # (Auto) 0.30, Eosinophils # (Auto) 0.13, Basophils # (Auto) 0.01 10/30/16 11:56 Test 10/30/16 11:56 10/30/16 12:43 10/30/16 12:50 White Blood Count 3.65 K/uL (4.8-10.8) Red Blood Count 4.70 M/uL (4.2-5.4) Hemoglobin 15.4 g/dL (12.0-16.0) Hematocrit 43.3 % (37-47) Mean Corpuscular Volume 92.1 fL (80-100) Mean Corpuscular Hemoglobin 32.8 pg (25-34) Mean Corpuscular Hemoglobin Concent 35.6 g/dl (32-36) Platelet Count 250 K/uL (130-400) Mean Platelet Volume 9.7 fL (7.4-10.4) Neutrophils (%) (Auto) 41.3 % Lymphocytes (%) (Auto) 46.3 % Monocytes (%) (Auto) 8.2 % Eosinophils (%) (Auto) 3.6 % Basophils (%) (Auto) 0.3 % Neutrophils # (Auto) 1.51 K/uL (1.4-6.5) Lymphocytes # (Auto) 1.69 K/uL (1.2-3.4) Monocytes # (Auto) 0.30 K/uL (0.11-0.59) Eosinophils # (Auto) 0.13 K/uL (0-0.5) Basophils # (Auto) 0.01 K/uL (0-0.2) RDW Standard Deviation 46.8 fL (36.4-46.3) RDW Coefficient of Variation 13.8 % (11.5-14.5) Immature Granulocyte % (Auto) 0.3 % Immature Granulocyte # (Auto) 0.01 K/uL (0.00-0.02) Prothrombin Time 11.3 SECONDS (9.0-12.0) Prothromb Time International Ratio 1.1 (0.9-1.1) Activated Partial Thromboplast Time 24.6 SECONDS (21.0-31.0) Partial Thromboplastin Ratio 0.9 Anion Gap 8.0 mmol/L (3-11) Est Creatinine Clear Calc Drug Dose 62.9 ml/min Estimated GFR () 92.8 Estimated GFR (Non- 80.0 BUN/Creatinine Ratio 15.0 (10-20) Calcium Level 9.4 mg/dl (8.5-10.1) Total Creatine Kinase 90 U/L (26-192) Creatine Kinase MB 5.9 ng/ml (0.5-3.6) Creatine Kinase MB Ratio 6.6 (0-3.0) Troponin I < 0.015 ng/ml (0-0.045) Chemistry Specimen Hemolysis Hepatitis C Antibody Screen NEG (NEG) Bedside Glucose 121 mg/dl (70-90) Urine Opiates Screen NEG (NEG) Urine Methadone, Qualitative NEG (NEG) Urine Barbiturates NEG (NEG) Urine Phencyclidine (PCP) Level NEG (NEG) Ur Amphetamine/Methamphetamine NEG (NEG) MDMA (Ecstasy) Screen NEG (NEG) Urine Benzodiazepines Screen NEG (NEG) Urine Cocaine Metabolite NEG (NEG) Urine Marijuana (THC) NEG (NEG) Laboratory results as reviewed by me. Medications Administered Medications (Trade) Dose Ordered Sig/Ami Route Start Time Stop Time Status Last Admin Dose Admin Sodium Chloride (Nss 1000ml) 1,000 ml @ 50 mls/hr Q20H IV 10/30/16 12:36 10/30/16 16:00 DC 10/30/16 12:54 50 MLS/HR Clopidogrel Bisulfate (plAVix TAB) 75 mg NOW ONCE PO 10/30/16 14:30 10/30/16 14:31 DC 10/30/16 14:22 75 MG ECG Indication: other (Stroke Sx) Rate (beats per minute): 55 Rhythm: sinus bradycardia Findings: no acute ischemic change, no ectopy ED Course 1226: The patient was evaluated in room C2. A complete history and physical exam was performed. 1236: Ordered Sodium Chloride 1000 mL @ 50 mL/hr IV. 1351: I discussed the case with Dr. Herring - Neurology at this time. She suggest I place the patient on Plavix and obtain a MRI, MRA, and Echo with Bubble. 1407: I checked on the patient at this time. I discussed her test results with her. 1411: I discussed the case with Dr. Fernandez - [facility] [place] Hospitalist at this time, he will evaluate the patient for further treatment. 1430: Ordered Plavix 75 mg PO. Medical Decision This is a 71-year-old female who presents with strokelike symptoms. Differential diagnosis includes TIA, CVA, metabolic derangement, intracranial mass, intracranial hemorrhage. I did perform a limited focused review of portions of the patient's old chart on the electronic medical record. The patient was seen here in the Emergency Department on October 23 for Stroke Symptoms, including numbness and weakness of the right arm and face. She had a MRI of the brain which was negative for acute findings. She also has a Carotid US which was unremarkable. She was discharged home for outpatient follow-up. I did evaluate the patient as noted above. The patient is presenting with strokelike symptoms which have completely resolved. She is neurologically intact at this time. She does have a history of GI and causing hypercoagulability but she is not on any blood thinners. IV access was established. The patient was placed on a continuous medical superintendent. I did order and personally review the patient's 12-lead EKG and chest x-ray as described above. I did order and review the patient's blood work as noted in the electronic medical record. She does have some leukopenia which is chronic. I did order a CT of the head. I did review the images myself as well as the radiology report as described above. There is no evidence of intracranial hemorrhage. I did reassess the patient. I did discuss the test results with her and her family in detail. As this is the second TIA within a week I did feel she should be hospitalized. I did discuss the case with Dr. Crawford of neurology who agreed and made recommendations. I did treat her with Plavix 75 mg orally. I did discuss case with the hospitalist and transplant case manager. Consults Time Called: 1345 Consulting Physician: Dr. Herring - Neurology Returned Call: 1351 I discussed the case with Dr. Herring - Neurology at this time. She suggest I place the patient on Plavix and obtain a MRI, MRA, and Echo with Bubble. Additional Consults: Time Called: 1406 Consulted Physician: Dr. Rebecca FLORENTINO Hospitalist Returned Call: 1417 Additional Comments: I discussed the case with Dr. Rebecca FLORENTINO Hospitalist at this time, he will evaluate the patient for further treatment. Impression Primary Impression: TIA (transient ischemic attack) Scribe Attestation The scribe's documentation has been prepared under my direct and personally reviewed by me in its entirety. I confirm that the note above accurately reflects all work, treatment, procedures, and medical decision making performed by me. Departure Information Dispostion Being Evaluated By Hospitalist Referrals Darrin Santizo M.D. (PCP) Patient Instructions My [facility] Problem Qualifiers Primary Impression: TIA (transient ischemic attack) Transient cerebral ischemia type: unspecified Qualified Codes: G45.9 - Transient cerebral ischemic attack, unspecified
[2016-10-30 19:26] VITALS: BP 158/99; PULSE 74; TEMP 37.3; O2SAT 94
[2016-10-30] MEDS ORDERED: ENOXAPARIN 40 MG/0.4 ML SYR SC SCH (21:00)
[2016-10-30] MEDS: DOXYCYCLINE HYCLATE 100 MG CAP PO SCH (21:05)
[2016-10-30 23:16] VITALS: BP 123/74; PULSE 52; TEMP 36.9; O2SAT 95
[2016-10-31 03:25] VITALS: BP 128/80; PULSE 52; TEMP 36.9; O2SAT 95
[2016-10-31 06:35] LABS: BASO % 0.6 %; BASO ABS # 0.03 K/uL (0-0.2); COMPLETE YES; EOS % 3.4 %; HEMATOCRIT 39.1 % (37-47); IG% 0.2 %; LYMPH % 32.7 %; LYMPH ABS # 1.52 K/uL (1.2-3.4); MEAN CELL VOLUME 90.9 fL (80-100); MEAN CORPUSCULAR HEMOGLOBIN 32.3 pg (25-34); MEAN CORPUSCULAR HGB CONC 35.5 g/dl (32-36); MEAN PLATELET VOLUME 9.1 fL (7.4-10.4); MONO % 10.5 %; NEUT % 52.6 %; PLATELET COUNT 213 K/uL (130-400); WHITE BLOOD COUNT 4.65 K/uL (4.8-10.8)
[2016-10-31 06:42] LABS: ESTIMATED AVERAGE GLUCOSE 103 mg/dl; HA1C FLAG Normal (Normal)
[2016-10-31 07:14] LABS: BUN/CREATININE RATIO 16.8 (10-20); CALCIUM 8.8 mg/dl (8.5-10.1); CREATININE 0.74 mg/dl (0.60-1.20)
[2016-10-31 07:17] LABS: CHOLESTEROL/HDL RATIO 2.2
[2016-10-31 07:58] VITALS: BP 135/90; PULSE 52; TEMP 36.7; O2SAT 94
[2016-10-31] MEDS: DOXYCYCLINE HYCLATE 100 MG CAP PO SCH ×2 (08:44→21:26)
[2016-10-31] MEDS: ASPIRIN 81 MG ECTAB PO SCH (08:45)
[2016-10-31] MEDS: OMEGA-3 (PURIFIED FISH OIL) 1 GM CAP PO SCH (08:45)
[2016-10-31] MEDS: MAGNESIUM OXIDE 400 MG TAB PO SCH (08:45)
[2016-10-31] MEDS: CEROVITE ADV FORMULA TAB PO SCH (08:45)
[2016-10-31] MEDS ORDERED: ATORVASTATIN 40 MG TAB PO SCH (09:00)
[2016-10-31] MEDS ORDERED: CLOPIDOGREL BISULFATE 75 MG TAB PO SCH (09:00)
[2016-10-31 11:46] VITALS: BP 147/89; PULSE 55; TEMP 36.6; O2SAT 96
--- NOTE | 2016-10-31 12:25 | Hospitalist Progress Note ---
Hospitalist Progress Note Date of Service Oct 31, 2016. Subjective Pt evaluation today including: conversation w/ patient, physical exam, chart review, lab review, review of studies, review of inpatient medication list Pain: None PO Intake: Tolerating PO diet Voiding: no voiding problems Patient reports feeling well overall. She states that she has intermittent episodes of right-sided facial numbness, right eye twitching and numbness in her right third and fourth digits. The symptoms last for about a minute and then completely resolve. The patient states that when these episodes occur, she is not able to talk. These episodes first occurred about 1 week ago while she was out bicycling. At that time, she was still able to talk during the episode. The patient denies any history of seizures or being on any seizure medications. She denies any lightheadedness or loss of consciousness. She denies any motor weakness. The patient denies fevers, chills, sweats, chest pain, palpitations, claudication, cough, wheezing, shortness of breath, nausea, vomiting, abdominal pain, dysuria, hematuria, urinary retention, paralysis, and weakness. Additional Comments: See HPI for pertinent positives and negatives. All other systems reviewed and negative. Objective Vital Signs Date Time Temp Pulse Resp B/P Pulse Ox O2 Delivery O2 Flow Rate FiO2 10/31/16 11:46 36.6 55 18 147/89 96 Room Air 10/31/16 07:58 36.7 52 18 135/90 94 Room Air 10/31/16 04:00 Room Air 10/31/16 03:25 36.9 52 17 128/80 95 Room Air 10/31/16 00:00 Room Air 10/30/16 23:16 36.9 52 17 123/74 95 Room Air 10/30/16 20:00 Room Air 10/30/16 19:26 37.3 74 20 158/99 94 Room Air 10/30/16 16:55 57 14 150/88 96 Room Air 10/30/16 16:35 82 20 180/82 95 Room Air 213/107 10/30/16 16:00 37.0 53 16 158/96 96 Room Air 10/30/16 16:00 Room Air 10/30/16 15:38 Room Air 10/30/16 15:31 59 14 146/100 96 10/30/16 15:03 57 22 157/98 98 Room Air 10/30/16 14:30 60 21 149/91 98 Room Air 10/30/16 13:55 58 19 142/96 96 Room Air 10/30/16 12:57 56 10/30/16 12:24 97 Room Air 10/30/16 12:24 36.5 63 21 168/96 95 Room Air Physical Exam General Appearance: WD/WN, no apparent distress, + pertinent finding (appears younger than stated age) Eyes: normal inspection, PERRL, EOMI ENT: normal ENT inspection, hearing grossly normal, pharynx normal Neck: supple, no JVD, trachea midline Respiratory/Chest: lungs clear, normal breath sounds, no respiratory distress Cardiovascular: regular rate, rhythm, no gallop, no murmur Abdomen: normal bowel sounds, non tender, soft Extremities: normal range of motion, non-tender, normal inspection, no pedal edema, normal capillary refill Neurologic/Psychiatric: no motor/sensory deficits, alert, normal mood/affect, oriented x 3, + pertinent finding (no facial droop, aphasia, pronator drift, or motor/sensory deficits. cerebellar tests normal. did not test gait) Skin: normal color, warm/dry, no rash Laboratory Results Last 24 Hours Test 10/30/16 12:43 10/30/16 12:50 10/31/16 06:18 10/31/16 11:50 Bedside Glucose 121 mg/dl Urine Opiates Screen NEG Urine Methadone, Qualitative NEG Urine Barbiturates NEG Urine Phencyclidine (PCP) Level NEG Ur Amphetamine/Methamphetamine NEG MDMA (Ecstasy) Screen NEG Urine Benzodiazepines Screen NEG Urine Cocaine Metabolite NEG Urine Marijuana (THC) NEG White Blood Count 4.65 K/uL Red Blood Count 4.30 M/uL Hemoglobin 13.9 g/dL Hematocrit 39.1 % Mean Corpuscular Volume 90.9 fL Mean Corpuscular Hemoglobin 32.3 pg Mean Corpuscular Hemoglobin Concent 35.5 g/dl Platelet Count 213 K/uL Mean Platelet Volume 9.1 fL Neutrophils (%) (Auto) 52.6 % Lymphocytes (%) (Auto) 32.7 % Monocytes (%) (Auto) 10.5 % Eosinophils (%) (Auto) 3.4 % Basophils (%) (Auto) 0.6 % Neutrophils # (Auto) 2.44 K/uL Lymphocytes # (Auto) 1.52 K/uL Monocytes # (Auto) 0.49 K/uL Eosinophils # (Auto) 0.16 K/uL Basophils # (Auto) 0.03 K/uL RDW Standard Deviation 44.8 fL RDW Coefficient of Variation 13.7 % Immature Granulocyte % (Auto) 0.2 % Immature Granulocyte # (Auto) 0.01 K/uL Sodium Level 141 mmol/L Potassium Level 4.0 mmol/L Chloride Level 106 mmol/L Carbon Dioxide Level 28 mmol/L Anion Gap 7.0 mmol/L Blood Urea Nitrogen 12 mg/dl Creatinine 0.74 mg/dl Est Creatinine Clear Calc Drug Dose 64.6 ml/min Estimated GFR () 95.8 Estimated GFR (Non- 82.7 BUN/Creatinine Ratio 16.8 Random Glucose 95 mg/dl Calcium Level 8.8 mg/dl Triglycerides Level 93 mg/dl Cholesterol Level 218 mg/dl HDL Cholesterol 101 mg/dl LDL Cholesterol, Calculated 98 mg/dl VLDL Cholesterol, Calculated 19 mg/dl Cholesterol/HDL Ratio 2.2 Diagnostic Results Reviewed the following studies and agree with interpretation as follows: Patient Name: KEENAN CABEZAS Unit Number: [id number] Dictated: 10/30/161751 Transcribed: 10/30/161751 [facility] Printed Date/Time: [~ rep prt dt]/[~ rep prt tm] [~ rep ct labl] - [~ rep ct ivnm] [facility] [place] [address] Dictated: 10/30/161751 Transcribed: 10/30/161751 [facility] Printed Date/Time: [~ rep prt dt]/[~ rep prt tm] [~ rep ct labl] - [~ rep ct ivnm] Patient: KEENAN CABEZAS Address1: [address] [place] [address] Rec: [id number] Address2: Acct ID: [id number] [facility] Zip: [place] [address] Date: 1945 Sex: F Room/Bed: S238-2 Ref Phy: Meera Rudolph M.D. SC: Mulu Att Phy: aGbriele Fernandez M.D. Report #: [id number] Kristyn Phy: Darrin Santizo M.D. Test: [facility] Admit Phy: Gabriele Fernandez M.D. Canvas Cutter Hand: LESTRE Interpreting Phy: Matheus Womack MD Diagnosis: STROKE Ordering Phy: Gabriele Fernandez M.D. Service Date: 10/30/16 Admit Date: 10/31/1703/09/17 MNE: [id number] CONF: DICTATED BY: Matheus Womack M.D.]] CC: Gabriele Fernandez M.D. Pandolph, Stephen J., M.D. Stephenson, Laura L., M.D. Endcc: [~ rep ct add3]] Brain MRI WITH AND WITHOUT CONTRAST HISTORY: Stroke symptoms. Right facial droop. TECHNIQUE: Multiplanar multisequence MRI of the brain was performed both before and after the intravenous administration of contrast. COMPARISON STUDY: Head CT 10/30/2016. Brain MRI FINDINGS: There is no mass, hematoma, midline shift, or acute infarct. The paranasal sinuses are clear. The mastoid or cells are clear. The ventricles and sulci demonstrate mild age-related involutional changes. Scattered foci of T2 hyperintensity seen within the periventricular and subcortical white matter are nonspecific but suggestive of mild microvascular ischemic changes. The major vascular flow voids at the skull base are well-maintained. No abnormal enhancement. 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 This is considered a normal variant. IMPRESSION: No significant change compared to the prior study. No acute intracranial abnormality. Electronically signed by: Matheus Womack M.D. 10/30/2016 6:05 PM Dictated Date/Time: 10/30/2016 5:52 PM The status of this report is Signed. Draft = Not yet reviewed or approved by Radiologist. Signed = Reviewed and approved by Radiologist. <AttendingPhy>Gabriele Fernandez M.D.</AttendingPhy> <FamilyPhy>Meera Rudolph M.D.</FamilyPhy> <PrimaryPhy>Darrin Santizo M.D.</PrimaryPhy> < UnitNumber>[id number]</UnitNumber> <VisitNumber>[id number]</VisitNumber> < PatientName>KEENAN CABEZAS</PatientName> <DateOfBirth>1945</ DateOfBirth> <Location>[facility]</Location> <ServiceDate>10/30/16</ServiceDate> <MNE> ESINDI</MNE> <OrderingPhy>Gabriele Fernandez M.D.</OrderingPhy> <OrderingPhyMNE >f rep ord dr godinez</OrderingPhyMNE> <DictatingPhyMNE>f rep dict dr godinez</ DictatingPhyMNE> <CCListMNE>f rep ct gretchen</CCListMNE> <AdmittingPhyMNE>f pt admit dr godinez</AdmittingPhyMNE> <AttendingPhyMNE>f pt attend dr godinez</ AttendingPhyMNE> <ConsultingPhyMNE>f pt consult dr godinez</ConsultingPhyMNE> <FamilyPhyMNE>f pt fam dr godinez</FamilyPhyMNE> <OtherPhyMNE>f pt other dr godinez</OtherPhyMNE> < PrimaryPhyMNE>f pt prim care dr godinez</PrimaryPhyMNE> <ReferringPhyMNE>f pt referring dr godinez</ReferringPhyMNE> Assessment and Plan 71 y/o female with a history of Lyme's disease for which she is currently taking doxycycline, and history of a cavernous hemangioma in 1999 presents to the ED on 10/30 with intermittent numbness in the fingers and right side of her face as well as right eye twitching and palpitations. Patient hypertensive on arrival with a BP of 168/96. Other vital signs stable. CXR and head CT showed no acute disease. EKG shows no ischemic changes. Initial labs grossly unremarkable. TIA vs seizures, h/o cavernous hemangioma--possible absence seizures or partial seizures, denies any h/o seizures -Admit to telemetry. Acute events overnight, patient remained in sinus bradycardia with HR in 50s -MRI of the brain shows no acute disease -Neurology consulted, appreciate recs -Lipid panel within normal limits: HDL 101, LDL 98, triglycerides 93. Can d/c atorvastatin. -Continue aspirin and Plavix for now -Echocardiogram pending -Continue to hold vitamin K -Check thiamine, B12, TSH and folate -PT/OT evaluate and treat Lyme's disease -Continue doxycycline 100 mg PO BID -Unlikely this is contributing to her symptoms given presentation DVT prophylaxis -Enoxaparin 40 mg SC q24h -IVANNA Howe Code Status -Level I, FULL RESUSCITATION STATUS This chart was completed in part utilizing [employer] Speech Voice Recognition software. Attempts were made to minimize the grammatical errors, random word insertions, pronoun errors and incomplete sentences. Any formal questions or concerns about the content, text or information contained within the body of this dictation should be directly addressed to the provider for clarification.
--- NOTE | 2016-10-31 14:48 | Neurology Consultation ---
Neurology Consultation Date of Consultation: Oct 31, 2016. Attending Physician: Carlos Balderrama D.O. Primary Care Physician: Darrin Santizo M.D. Reason for Consultation: stroke like symptoms History of Present Illness Source: patient, family Candy is a 71 year old female who started having symptoms while riding her bicycle. She was seen in the ED 1 week ago for similar symptoms but this time she was unable to talk. She states it starts in her right hand 3rd and 4th fingers comes up her arm and then the right side of her face gets numb. 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 she has been on aspirin since that time and was followed by Dr Little. She had 2 episodes of a tick bite and was positive in 2012 and was negative at with the recent bite but was treated with doxycycline 100 mg BID and is still currently taking it. She has no history of seizure disorder. 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 This am when she was bending over the sink to wash her hair she started having an episode that was witnessed by nursing staff. She stated that she was back in bed when she went into the room and was unable to talk and there was twitching on the right side of her face, she was hyperventilating which lasted about 1 minute. She also had an event come on with biting on a pretzel. There is no confusion or headache after the event and she was not incontinent and didn 't bite her tongue. denies falls with head injury, CP, SOB, abdominal pain, one sided weakness numbness tingling, swallowing difficulties, N, V. Past Medical/Surgical History Medical Problems: (1) Facial paresthesia Status: Acute (2) Paresthesia of hand Status: Acute (3) TIA (transient ischemic attack) Status: Acute Social History Smoking Status: Former smoker Marital Status: Occupation Status: employed Allergies Coded Allergies: Cefuroxime (Verified Allergy, Intermediate, RASH, 10/30/16) Current Inpatient Medications Current Inpatient Medications Medications (Trade) Dose Ordered Sig/Ami Route Start Time Stop Time Status Last Admin Dose Admin Aspirin (Ecotrin Tab) 81 mg DAILY PO 10/31/16 09:00 11/30/16 08:59 10/31/16 08:45 81 MG Fish Oil ([place]-3 (Purified Fish Oil) Cap) 3 gm DAILY PO 10/31/16 09:00 11/30/16 08:59 10/31/16 08:45 3 GM Magnesium Oxide (Mag-Ox Tab) 400 mg DAILY PO 10/31/16 09:00 11/30/16 08:59 10/31/16 08:45 400 MG Multivitamins/ Minerals (Multivitamin W/ Minerals Tab) 1 tab DAILY PO 10/31/16 09:00 11/30/16 08:59 10/31/16 08:45 1 TAB Atorvastatin Calcium (Lipitor Tab) 40 mg QAM PO 10/31/16 09:00 11/30/16 08:59 10/31/16 08:44 40 MG Clopidogrel Bisulfate (plAVix TAB) 75 mg QAM PO 10/31/16 09:00 11/30/16 08:59 10/31/16 08:44 75 MG Miscellaneous Information (Pharmacist Discharge Med Rec Consult) 1 ea UD PRN N/A 10/30/16 14:45 11/29/16 14:44 Enoxaparin Sodium (Lovenox Inj) 40 mg HS SC 10/30/16 21:00 11/29/16 20:59 Acetaminophen (Tylenol Tab) 650 mg Q4H PRN PO 10/30/16 14:45 11/29/16 14:44 Al Hydrox/Mg Hydrox/Simethicone (Maalox Max Susp) 15 ml Q4H PRN PO 10/30/16 14:45 11/29/16 14:44 Magnesium Hydroxide (Milk Of Magnesia Susp) 30 ml Q12H PRN PO 10/30/16 14:45 11/29/16 14:44 Ondansetron HCl (Zofran Inj) 4 mg Q6H PRN IV 10/30/16 14:45 11/29/16 14:44 Doxycycline Hyclate (Vibramycin Cap) 100 mg BID PO 10/30/16 21:00 11/02/16 23:00 10/31/16 08:44 100 MG Hydralazine HCl (HydrALAZINE INJ) 10 mg Q4H PRN IV 10/30/16 16:45 11/29/16 16:44 Gadobutrol (Gadavist) 6 mmol UD PRN IV 10/30/16 17:45 11/03/16 17:44 Miscellaneous (Iv Fluids Completed) 1 ea PRN PRN N/A 10/30/16 18:00 10/30/17 17:59 Physical Exam Vital Signs (Past 24 Hrs): Date Time Temp Pulse Resp B/P Pulse Ox O2 Delivery O2 Flow Rate FiO2 10/31/16 12:00 Room Air 10/31/16 11:46 36.6 55 18 147/89 96 Room Air 10/31/16 08:00 Room Air 10/31/16 07:58 36.7 52 18 135/90 94 Room Air 10/31/16 04:00 Room Air 10/31/16 03:25 36.9 52 17 128/80 95 Room Air 10/31/16 00:00 Room Air 10/30/16 23:16 36.9 52 17 123/74 95 Room Air 10/30/16 20:00 Room Air 10/30/16 19:26 37.3 74 20 158/99 94 Room Air 10/30/16 16:55 57 14 150/88 96 Room Air 10/30/16 16:35 82 20 180/82 95 Room Air 213/107 10/30/16 16:00 37.0 53 16 158/96 96 Room Air 10/30/16 16:00 Room Air 10/30/16 15:38 Room Air 10/30/16 15:31 59 14 146/100 96 10/30/16 15:03 57 22 157/98 98 Room Air Physical Exam: Constitutional: appearance nourished, healthy and normal Ears, Nose, Mouth and Throat: mucous membranes moist, no injection and skin normal, eyes normal Cardiovascular: normal S-1 and S-2 and regular rate and rhythm Respiratory: clear to auscultation (CTA) and no rales, rhonchi or wheeze Musculoskeletal: no peripheral edema and good distal pulses Skin: no stigmata of neurocutaneous disease noted and normal and intact Eyes: extraocular muscles intact (EOMI) and pupils equal, round and reactive to light (PERRL), miotic NEUROLOGIC EXAMINATION: Mental status: Alert and interactive Oriented to full date and location Oriented to person Speech fluent with no evidence of aphasia Cranial Nerves smile eye brow raise symmetric, tongue midline Reflexes: Deep tendon reflexes were symmetrical and graded 2/5. Plantar responses were flexor. Sensory: intact to cool, vibration, GT proprioception intact Coordination: Romberg absent Gait/Stance: Posture normal. Gait normal: with steady with steps, base, turning, heel and toe walking and tandem gait. Motor: Negative for pronator drift of out stretched arms with eyes closed. Strength: biceps triceps hand correction warden intrinsics 5/5 bilaterally intact, hip flex plantar flex ext 5/5 bilaterally Laboratory Results Past 24 Hours: 10/31/16 06:18 Red Blood Count 4.30, Mean Corpuscular Volume 90.9, Mean Corpuscular Hemoglobin 32.3, Mean Corpuscular Hemoglobin Concent 35.5, Mean Platelet Volume 9.1, Neutrophils (%) (Auto) 52.6, Lymphocytes (%) (Auto) 32.7, Monocytes (%) (Auto) 10.5, Eosinophils (%) (Auto) 3.4, Basophils (%) (Auto) 0.6, Neutrophils # (Auto ) 2.44, Lymphocytes # (Auto) 1.52, Monocytes # (Auto) 0.49, Eosinophils # (Auto ) 0.16, Basophils # (Auto) 0.03 10/31/16 06:18 Test 10/31/16 06:18 10/31/16 12:25 White Blood Count 4.65 K/uL (4.8-10.8) Red Blood Count 4.30 M/uL (4.2-5.4) Hemoglobin 13.9 g/dL (12.0-16.0) Hematocrit 39.1 % (37-47) Mean Corpuscular Volume 90.9 fL (80-100) Mean Corpuscular Hemoglobin 32.3 pg (25-34) Mean Corpuscular Hemoglobin Concent 35.5 g/dl (32-36) Platelet Count 213 K/uL (130-400) Mean Platelet Volume 9.1 fL (7.4-10.4) Neutrophils (%) (Auto) 52.6 % Lymphocytes (%) (Auto) 32.7 % Monocytes (%) (Auto) 10.5 % Eosinophils (%) (Auto) 3.4 % Basophils (%) (Auto) 0.6 % Neutrophils # (Auto) 2.44 K/uL (1.4-6.5) Lymphocytes # (Auto) 1.52 K/uL (1.2-3.4) Monocytes # (Auto) 0.49 K/uL (0.11-0.59) Eosinophils # (Auto) 0.16 K/uL (0-0.5) Basophils # (Auto) 0.03 K/uL (0-0.2) RDW Standard Deviation 44.8 fL (36.4-46.3) RDW Coefficient of Variation 13.7 % (11.5-14.5) Immature Granulocyte % (Auto) 0.2 % Immature Granulocyte # (Auto) 0.01 K/uL (0.00-0.02) Anion Gap 7.0 mmol/L (3-11) Est Creatinine Clear Calc Drug Dose 64.6 ml/min Estimated GFR () 95.8 Estimated GFR (Non- 82.7 BUN/Creatinine Ratio 16.8 (10-20) Calcium Level 8.8 mg/dl (8.5-10.1) Triglycerides Level 93 mg/dl (0-150) Cholesterol Level 218 mg/dl (0-200) HDL Cholesterol 101 mg/dl LDL Cholesterol, Calculated 98 mg/dl VLDL Cholesterol, Calculated 19 mg/dl Cholesterol/HDL Ratio 2.2 Vitamin B12 Level 722 pg/mL (211-911) Folate > 24.00 ng/mL (>5.38) Thyroid Stimulating Hormone (TSH) 1.950 uIu/ml (0.300-4.500) Imaging MRI with and without- There is no mass, hematoma, midline shift, or acute infarct. The paranasal sinuses are clear. The mastoid or cells are clear. The ventricles and sulci demonstrate mild age-related involutional changes. Scattered foci of T2 hyperintensity seen within the periventricular and subcortical white matter are nonspecific but suggestive of mild microvascular ischemic changes. The major vascular flow voids at the skull base are well- maintained. No abnormal enhancement. 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 This is considered a normal variant. carotid doppler- No evidence of hemodynamically significant carotid stenosis. Impression 71 year old female with transient events over the past week, r/o TIA, stroke, seizure, complex migraine Plan 1. MRI with no new acute findings will order MRI without to obtain Gradient imaging 2. carotid doppler no significant stenosis 3. TTE pending read 4. EEG- ordered 5. history of ocular migraines with no associated headaches. 6. no history of seizure disorder 7. plavix 75 mg started on this admission- stop not needed at this time 8. PT/OT/speech for discharge needs 9. permissive hypertension- was somewhat elevated last evening but otherwise high normal 10. start Keppra 500 mg q12h I have seen and discussed above patient with Dr Sandra Rehman, neurology Discussed with pt. SEveral essentially stereotyped episodes of of migratory of R hand to face numbness with R eyelid twitching and head deviation to the right with R facial droop and expressive lang dysfunction lasting 1 min not associated with weakness or alteration of consciousness. This is very likely simple partial sz related to the L parietal venous anomaly. STart Keppra, se discussed. EEG in am. GRE imaging to eval for MRI evidence of bleed, although CT head shows no macrohem. Stop plavix, lovenox (pt ambulatory. Will need outpt eval with NETTE Rehman MD
[2016-10-31 15:58] VITALS: BP 133/86; PULSE 67; TEMP 36.8; O2SAT 96
--- NOTE | 2016-10-31 19:06 | ECHOCARDIOGRAM REPORT ---
*NOTICE TO RECEIVING LIBERTARIAN AGENCY This information is strictly Confidential and protected under [place] law. [place] law prohibits you from making any further disclosure of this information unless further disclosure is expressly permitted by the written consent of the person to whom it pertains or is authorized by law. A general authorization for the release of medical or other information is not sufficient for this purpose. Hospital accepts no responsibility if the information is made available to any other person, INCLUDING THE PATIENT. Interpretation Summary * Name: KEENAN CABEZAS Study Date: 10/31/2016 09:57 AM BP: 128/80 mmHg * Patient Location: [facility] HR: 52 * : 1945 (M/d/yyyy) Gender: Female Height: 65 in * Age: 71 yrs Ethnicity: [place] Weight: 136 lb * Ordering Physician: Gabriele Fernandez * Referring Physician: Self, Referred * Performed By: Aaron Benson RCS * * Reason For Study: CEREBRAL ISCHEMIA/ EMBOLUS * BSA: 1.7 m2 * Normal biventricular systolic function. * Moderate concentric left ventricular hypertrophy. * Type 1 left ventricular diastolic dysfunction. * Trace aortic and pulmonic regurgitation. * Trace mitral and tricuspid regurgitation. * Evidence of small xykli-[id number]-tscm shunt across interatrial septum consistent with a patent foramen ovale. * Probable elevated central venous pressure. * Mildly elevated estimated right ventricular systolic pressure. * -- Conclusions -- * Aortic valve sclerosis moderate, without significant aortic valvular stenosis. Procedure Details * Left Ventricle The left ventricle is normal in size. There is moderate concentric left ventricular hypertrophy. Left ventricular systolic function is normal. Ejection Fraction = 65-70%. A full diastolic examination was done with clinical findings of Class I diastolic dysfunction. The left ventricular wall motion is normal. * Right Ventricle The right ventricle is normal in size and function. The right ventricular systolic function is normal as assessed by tricuspid annular plane systolic excursion (TAPSE) (normal >1.5 cm). * Atria The left atrial size is normal. Right atrial size is normal. Injection of contrast documented an interatrial shunt. No interatrial flow noted on color Doppler. No evidence of atrial septal defect. On bubble study there was a small right to left interatrial shunt. This is consistent with a patent foramen ovale. * Mitral Valve The mitral valve is normal. There is no mitral valve stenosis. There is trace mitral regurgitation. * Tricuspid Valve The tricuspid valve is normal. There is no tricuspid stenosis. There is trace tricuspid regurgitation. * Aortic Valve The aortic valve is trileaflet. The aortic valve opens well. Aortic valve sclerosis moderate, without significant aortic valvular stenosis. Aortic stenosis is absent. Trace aortic regurgitation. * Pulmonic Valve The pulmonic valve is not well visualized. The pulmonary valve is inadequately visualized, but the Doppler data is adequate for interpretation. There is no pulmonic valvular stenosis. Trace pulmonic valvular regurgitation. * Great Vessels Borderline aortic root dilatation. * Pericardium/Pleural There is no pericardial effusion. * Great Vessels The inferior vena cava is mildly dilated. * * MMode 2D Measurements and Calculations * IVSd 1.6 cm * IVSs 1.8 cm * * LVIDd 3.3 cm * LVIDs 2.0 cm * LVPWd 1.7 cm * LVPWs 2.0 cm * * IVS/LVPW 0.94 * FS 37.7 % * EDV(Teich) 43.5 ml * ESV(Teich) 13.5 ml * EF(Teich) 69.1 % * * EDV(cubed) 35.3 ml * ESV(cubed) 8.5 ml * EF(cubed) 75.8 % * % IVS thick 14.1 % * % LVPW thick 17.7 % * * LV mass(C)d 211.1 grams * LV mass(C)dI 125.7 grams/m\S\2 * LV mass(C)s 164.5 grams * LV mass(C)sI 98.0 grams/m\S\2 * * CO(Teich) 1.6 l/min * CI(Teich) 0.93 l/min/m\S\2 * SV(Teich) 30.0 ml * SI(Teich) 17.9 ml/m\S\2 * CO(cubed) 1.4 l/min * CI(cubed) 0.83 l/min/m\S\2 * SV(cubed) 26.7 ml * SI(cubed) 15.9 ml/m\S\2 * * Ao root diam 3.8 cm * Ao root area 11.4 cm\S\2 * ACS 2.0 cm * LA dimension 3.5 cm * * asc Aorta Diam 3.6 cm * * LA/Ao 0.93 * LVOT diam 2.1 cm * LVOT area 3.5 cm\S\2 * * LVAd ap4 29.8 cm\S\2 * LVLd ap4 8.0 cm * EDV(MOD-sp4) 93.0 ml * LVAs ap4 14.5 cm\S\2 * LVLs ap4 6.5 cm * ESV(MOD-sp4) 29.0 ml * EF(MOD-sp4) 68.8 % * * LVAd ap2 26.5 cm\S\2 * LVLd ap2 7.6 cm * EDV(MOD-sp2) 77.0 ml * LVAs ap2 14.1 cm\S\2 * LVLs ap2 6.6 cm * ESV(MOD-sp2) 26.0 ml * EF(MOD-sp2) 66.2 % * * CO(MOD-sp4) 3.3 l/min * CI(MOD-sp4) 2.0 l/min/m\S\2 * SV(MOD-sp4) 64.0 ml * SI(MOD-sp4) 38.1 ml/m\S\2 * * CO(MOD-sp2) 2.7 l/min * CI(MOD-sp2) 1.6 l/min/m\S\2 * SV(MOD-sp2) 51.0 ml * SI(MOD-sp2) 30.4 ml/m\S\2 * * * * * * Doppler Measurements and Calculations * MV E max anila 37.0 cm/sec * MV A max anila 55.1 cm/sec * * MV E/A 0.67 * * Ao V2 max 121.0 cm/sec * Ao max PG 5.9 mmHg * Ao max PG (full) 1.8 mmHg * ELLEN(V,A) 2.9 cm\S\2 * ELLEN(V,D) 2.9 cm\S\2 * * AI max anila 346.1 cm/sec * AI max PG 47.9 mmHg * AI dec slope 60.9 cm/sec\S\2 * AI P1/2t 1665.5 msec * * LV V1 max PG 4.0 mmHg * * LV V1 max 100.4 cm/sec * * PA V2 max 73.0 cm/sec * PA max PG 2.1 mmHg * * PI max anila 96.4 cm/sec * PI max PG 3.7 mmHg * PI dec slope 63.1 cm/sec\S\2 * PI P1/2t 447.0 msec * * TR max anila 263.9 cm/sec * * * * *
[2016-10-31 19:33] VITALS: BP 110/76; PULSE 65; TEMP 36.9; O2SAT 93
[2016-10-31] MEDS: LEVETIRACETAM 500 MG TAB PO SCH (19:42)
--- NOTE | 2016-10-31 21:32 | DIAGNOSTIC IMAGING REPORT ---
Brain MRI WITHOUT CONTRAST HISTORY: Mental status change need gradient images TECHNIQUE: Multiplanar multisequence MRI of the brain was performed without the use of contrast. COMPARISON STUDY: 10/30/2016 FINDINGS: Identical exam. Mild atrophy. Multiple foci of increased signal within the periventricular and deep white matter regions. These are unchanged compared to the prior exam. There are no new or interval findings. Sella and parasellar regions are within normal limits. Internal auditory canals are symmetric. Ventricular system is midline. IMPRESSION: 1. Identical exam compared to the prior study. 2. Foci of increased signal within the periventricular and deep white matter regions throughout both cerebral hemispheres unchanged. 3. Given patient's age, this is most consistent with that of chronic small vessel change. A late onset demyelinating disorder is a secondary consideration. Electronically signed by: Francesco Meza M.D. 10/31/2016 9:30 PM Dictated Date/Time: 10/31/2016 9:26 PM
[2016-10-31 23:50] VITALS: BP 113/70; PULSE 56; TEMP 36.8; O2SAT 97
[2016-11-01 04:16] VITALS: BP 108/64; PULSE 48; TEMP 36.8; O2SAT 97
[2016-11-01 08:08] VITALS: BP 124/80; PULSE 63; TEMP 36.5; O2SAT 96
[2016-11-01 08:37] LABS: BASO % 0.7 %; BASO ABS # 0.02 K/uL (0-0.2); COMPLETE YES; HEMATOCRIT 42.3 % (37-47); IG% 0.3 %; LYMPH % 38.5 %; LYMPH ABS # 1.15 K/uL (1.2-3.4); MEAN CELL VOLUME 91.8 fL (80-100); MEAN CORPUSCULAR HEMOGLOBIN 32.1 pg (25-34); MEAN PLATELET VOLUME 9.4 fL (7.4-10.4); MONO % 15.7 %; NEUT % 39.8 %; PLATELET COUNT 229 K/uL (130-400); RED BLOOD COUNT 4.61 M/uL (4.2-5.4); WHITE BLOOD COUNT 2.99 K/uL (4.8-10.8)
[2016-11-01] MEDS: DOXYCYCLINE HYCLATE 100 MG CAP PO SCH ×2 (08:58→20:29)
[2016-11-01] MEDS: LEVETIRACETAM 500 MG TAB PO SCH ×2 (08:58→20:29)
[2016-11-01] MEDS: CEROVITE ADV FORMULA TAB PO SCH (08:59)
[2016-11-01] MEDS: ASPIRIN 81 MG ECTAB PO SCH (08:59)
[2016-11-01] MEDS: OMEGA-3 (PURIFIED FISH OIL) 1 GM CAP PO SCH (09:00)
[2016-11-01] MEDS: MAGNESIUM OXIDE 400 MG TAB PO SCH (09:00)
[2016-11-01 09:03] LABS: BUN/CREATININE RATIO 22.2 (10-20); CALCIUM 9.3 mg/dl (8.5-10.1); CREATININE 0.69 mg/dl (0.60-1.20); POTASSIUM 4.3 mmol/L (3.5-5.1)
[2016-11-01 11:42] VITALS: BP 124/85; PULSE 56; TEMP 36.3; O2SAT 98
--- NOTE | 2016-11-01 14:14 | Neurology Progress Notes ---
Neurology Progress Note Date of Service Nov 01, 2016. Klever Gupta is a 71 year old female who started having symptoms while riding her bicycle. She was seen in the ED 1 week ago for similar symptoms but this time she was unable to talk. She states it starts in her right hand 3rd and 4th fingers comes up her arm and then the right side of her face gets numb. 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 she has been on aspirin since that time and was followed by Dr Little. She had 2 episodes of a tick bite and was positive in 2012 and was negative at with the recent bite but was treated with doxycycline 100 mg BID and is still currently taking it. She has no history of seizure disorder. 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 This am when she was bending over the sink to wash her hair she started having an episode that was witnessed by nursing staff. She stated that she was back in bed when she went into the room and was unable to talk and there was twitching on the right side of her face, she was hyperventilating which lasted about 1 minute. She also had an event come on with biting on a pretzel. There is no confusion or headache after the event and she was not incontinent and didn 't bite her tongue. Today she states since starting the Keppra there is no further tingling in her fingers and she has had not further events. denies falls with head injury, CP, SOB, abdominal pain, one sided weakness numbness tingling, swallowing difficulties, N, V. Objective Date Time Temp Pulse Resp B/P Pulse Ox O2 Delivery O2 Flow Rate FiO2 11/01/16 11:42 36.3 56 18 124/85 98 Room Air 11/01/16 08:08 36.5 63 18 124/80 96 Room Air 11/01/16 04:16 36.8 48 20 108/64 97 Room Air 11/01/16 04:00 Room Air 10/31/16 23:50 36.8 56 22 113/70 97 Room Air 10/31/16 23:45 Room Air 10/31/16 20:00 Room Air 10/31/16 19:33 36.9 65 20 110/76 93 Room Air 10/31/16 15:58 36.8 67 20 133/86 96 Room Air 10/31/16 15:30 Room Air Last 24 Hours Test 11/01/16 04:44 11/01/16 08:26 White Blood Count 2.99 K/uL Red Blood Count 4.61 M/uL Hemoglobin 14.8 g/dL Hematocrit 42.3 % Mean Corpuscular Volume 91.8 fL Mean Corpuscular Hemoglobin 32.1 pg Mean Corpuscular Hemoglobin Concent 35.0 g/dl Platelet Count 229 K/uL Mean Platelet Volume 9.4 fL Neutrophils (%) (Auto) 39.8 % Lymphocytes (%) (Auto) 38.5 % Monocytes (%) (Auto) 15.7 % Eosinophils (%) (Auto) 5.0 % Basophils (%) (Auto) 0.7 % Neutrophils # (Auto) 1.19 K/uL Lymphocytes # (Auto) 1.15 K/uL Monocytes # (Auto) 0.47 K/uL Eosinophils # (Auto) 0.15 K/uL Basophils # (Auto) 0.02 K/uL RDW Standard Deviation 45.8 fL RDW Coefficient of Variation 13.5 % Immature Granulocyte % (Auto) 0.3 % Immature Granulocyte # (Auto) 0.01 K/uL Sodium Level 138 mmol/L Potassium Level 4.3 mmol/L Chloride Level 102 mmol/L Carbon Dioxide Level 31 mmol/L Anion Gap 5.0 mmol/L Blood Urea Nitrogen 15 mg/dl Creatinine 0.69 mg/dl Est Creatinine Clear Calc Drug Dose 69.2 ml/min Estimated GFR () 102.9 Estimated GFR (Non- 88.8 BUN/Creatinine Ratio 22.2 Random Glucose 88 mg/dl Calcium Level 9.3 mg/dl Imaging: TTE * Aortic valve sclerosis moderate, without significant aortic valvular stenosis. The left ventricle is normal in size. There is moderate concentric left ventricular hypertrophy. Left ventricular systolic function is normal. Ejection Fraction = 65-70%. A full diastolic examination was done with clinical findings of Class I diastolic dysfunction. The left ventricular wall motion is normal . * Evidence of small [id number]-gb-[id number] shunt across interatrial septum consistent with a patent foramen ovale. Exam: Physical Exam: Constitutional: appearance nourished, healthy and normal Ears, Nose, Mouth and Throat: mucous membranes moist, no injection and skin normal, eyes normal Cardiovascular: normal S-1 and S-2 and regular rate and rhythm Respiratory: clear to auscultation (CTA) and no rales, rhonchi or wheeze Musculoskeletal: no peripheral edema and good distal pulses Skin: no stigmata of neurocutaneous disease noted and normal and intact Eyes: extraocular muscles intact (EOMI) and pupils equal, round and reactive to light (PERRL) NEUROLOGIC EXAMINATION: Mental status: Alert and interactive Oriented to full date and location Oriented to person Speech fluent with no evidence of aphasia Cranial Nerves smile eye brow raise symmetric, tongue midline Coordination: finger to nose no bi pass or tremor Gait/Stance: Posture sitting up in bed Motor: Negative for pronator drift of out stretched arms with eyes closed. Strength: biceps triceps hand plaque maker 5/5 bilaterally, hip flex ext 5/5 bilaterally Current Inpatient Medications Medications (Trade) Dose Ordered Sig/Ami Route Start Time Stop Time Status Last Admin Dose Admin Aspirin (Ecotrin Tab) 81 mg DAILY PO 10/31/16 09:00 11/30/16 08:59 11/01/16 08:59 81 MG Fish Oil ([place]-3 (Purified Fish Oil) Cap) 3 gm DAILY PO 10/31/16 09:00 11/30/16 08:59 11/01/16 09:00 3 GM Magnesium Oxide (Mag-Ox Tab) 400 mg DAILY PO 10/31/16 09:00 11/30/16 08:59 11/01/16 09:00 400 MG Multivitamins/ Minerals (Multivitamin W/ Minerals Tab) 1 tab DAILY PO 10/31/16 09:00 11/30/16 08:59 11/01/16 08:59 1 TAB Acetaminophen (Tylenol Tab) 650 mg Q4H PRN PO 10/30/16 14:45 11/29/16 14:44 Al Hydrox/Mg Hydrox/Simethicone (Maalox Max Susp) 15 ml Q4H PRN PO 10/30/16 14:45 11/29/16 14:44 Magnesium Hydroxide (Milk Of Magnesia Susp) 30 ml Q12H PRN PO 10/30/16 14:45 11/29/16 14:44 Ondansetron HCl (Zofran Inj) 4 mg Q6H PRN IV 10/30/16 14:45 11/29/16 14:44 Doxycycline Hyclate (Vibramycin Cap) 100 mg BID PO 10/30/16 21:00 11/02/16 23:00 11/01/16 08:58 100 MG Hydralazine HCl (HydrALAZINE INJ) 10 mg Q4H PRN IV 10/30/16 16:45 11/29/16 16:44 Gadobutrol (Gadavist) 6 mmol UD PRN IV 10/30/16 17:45 11/03/16 17:44 Miscellaneous (Iv Fluids Completed) 1 ea PRN PRN N/A 10/30/16 18:00 10/30/17 17:59 Levetiracetam (Keppra Tab) 500 mg BID PO 10/31/16 21:00 11/30/16 20:59 11/01/16 08:58 500 MG Impression 71 year old female with transient events over the past week, seizure no recurrent events since start of Keppra Plan 1. MRI with no new acute findings will order MRI without to obtain Gradient imaging done will discussed with radiology 2. carotid doppler no significant stenosis 3. TTE Evidence of small [id number] shunt across interatrial septum consistent with a patent foramen ovale. 4. EEG- pending read 5. history of ocular migraines with no associated headaches. 6. no history of seizure disorder 7. plavix 75 mg started on this admission- stop not needed at this time also stopped Lovenox 8. PT/OT/speech for discharge needs 9. discussed no driving x 6 months, swimming alone, or bathing alone, no heights safety for patient and family will be further discussed at follow up visit 10. start Keppra 500 mg q12h follow up in 2-3 weeks Sandra [facility]ledso[facility] neurology schedule I have seen and discussed above patient with Dr Sandra Rehman, neurology Simple partial sz last pm prior to starting keppra, none since. REviewed MRI with radiology no evidence of hemorh in region of DVA. Cont keppra. Will have NS see as outpt although doubt they will over any intervention. Answered pt and family questions. ALANA Rehman MD
[2016-11-01 15:38] VITALS: BP 109/77; PULSE 72; TEMP 36.5; O2SAT 95
--- NOTE | 2016-11-01 17:38 | Hospitalist Progress Note ---
Hospitalist Progress Note Date of Service Nov 01, 2016. Subjective Pt evaluation today including: conversation w/ patient, chart review, lab review, review of studies, conversation w/ human capital consultant Pain: no headache or other pain reported PO Intake: tolerating by mouth diet This is a 71-year-old female that was admitted on 10/30/16 with intermittent numbness in the fingers and right side of her face as well as a right eye twitching. She also reported palpitations. On arrival she was hypertensive with BP 168/96. She had no other concerning vital signs. Chest x- ray was clear. Head CT showed no acute disease. EKG was normal. Yesterday the patient went had what appeared to be a witnessed seizure. She was placed on Keppra by neurology. Plavix was stopped yesterday. Patient received second dose of Keppra this morning. The patient is alert and oriented with no complaints. She has had no further twitching or apparent seizure activity. An EEG was completed this morning with report pending. Patient has no other acute complaints other than being tired. Medications Current Inpatient Medications Medications (Trade) Dose Ordered Sig/Ami Route Start Time Stop Time Status Last Admin Dose Admin Aspirin (Ecotrin Tab) 81 mg DAILY PO 10/31/16 09:00 11/30/16 08:59 11/01/16 08:59 81 MG Fish Oil (Emerson-3 (Purified Fish Oil) Cap) 3 gm DAILY PO 10/31/16 09:00 11/30/16 08:59 11/01/16 09:00 3 GM Magnesium Oxide (Mag-Ox Tab) 400 mg DAILY PO 10/31/16 09:00 11/30/16 08:59 11/01/16 09:00 400 MG Multivitamins/ Minerals (Multivitamin W/ Minerals Tab) 1 tab DAILY PO 10/31/16 09:00 11/30/16 08:59 11/01/16 08:59 1 TAB Acetaminophen (Tylenol Tab) 650 mg Q4H PRN PO 10/30/16 14:45 11/29/16 14:44 Al Hydrox/Mg Hydrox/Simethicone (Maalox Max Susp) 15 ml Q4H PRN PO 10/30/16 14:45 11/29/16 14:44 Magnesium Hydroxide (Milk Of Magnesia Susp) 30 ml Q12H PRN PO 10/30/16 14:45 11/29/16 14:44 Ondansetron HCl (Zofran Inj) 4 mg Q6H PRN IV 10/30/16 14:45 11/29/16 14:44 Doxycycline Hyclate (Vibramycin Cap) 100 mg BID PO 10/30/16 21:00 11/02/16 23:00 11/01/16 08:58 100 MG Hydralazine HCl (HydrALAZINE INJ) 10 mg Q4H PRN IV 10/30/16 16:45 11/29/16 16:44 Gadobutrol (Gadavist) 6 mmol UD PRN IV 10/30/16 17:45 11/03/16 17:44 Miscellaneous (Iv Fluids Completed) 1 ea PRN PRN N/A 10/30/16 18:00 10/30/17 17:59 Levetiracetam (Keppra Tab) 500 mg BID PO 10/31/16 21:00 11/30/16 20:59 11/01/16 08:58 500 MG Objective Vital Signs Date Time Temp Pulse Resp B/P Pulse Ox O2 Delivery O2 Flow Rate FiO2 11/01/16 15:38 36.5 72 18 109/77 95 Room Air 11/01/16 12:00 Room Air 11/01/16 11:42 36.3 56 18 124/85 98 Room Air 11/01/16 08:08 36.5 63 18 124/80 96 Room Air 11/01/16 08:00 Room Air 11/01/16 04:16 36.8 48 20 108/64 97 Room Air 11/01/16 04:00 Room Air 10/31/16 23:50 36.8 56 22 113/70 97 Room Air 10/31/16 23:45 Room Air 10/31/16 20:00 Room Air 10/31/16 19:33 36.9 65 20 110/76 93 Room Air Physical Exam Notes: GENERAL : No acute distress EYES: No icterus, gaze conjugate NOSE: No evidence of epistaxis MOUTH: No lesions or candidiasis NECK: Supple LUNGS: CTA B/L, no wheezes, rales or rhonchi HEART: Regular, rate controlled ABDOMEN: Soft, NT, ND, BS Present EXTREMITIES: No LE edema, pedal pulses intact NEURO: A&OX3. Negative pronator drift. Strength equal and appropriate upper and lower extremities. Deep tendon reflexes two out of four to the patellar, brachial radialis, biceps tendons. Toes are downgoing bilaterally. Cerebellar function intact with finger to nose, rapid on the movements. Gait and Romberg deferred Laboratory Results Last 24 Hours Test 11/01/16 04:44 11/01/16 08:26 White Blood Count 2.99 K/uL Red Blood Count 4.61 M/uL Hemoglobin 14.8 g/dL Hematocrit 42.3 % Mean Corpuscular Volume 91.8 fL Mean Corpuscular Hemoglobin 32.1 pg Mean Corpuscular Hemoglobin Concent 35.0 g/dl Platelet Count 229 K/uL Mean Platelet Volume 9.4 fL Neutrophils (%) (Auto) 39.8 % Lymphocytes (%) (Auto) 38.5 % Monocytes (%) (Auto) 15.7 % Eosinophils (%) (Auto) 5.0 % Basophils (%) (Auto) 0.7 % Neutrophils # (Auto) 1.19 K/uL Lymphocytes # (Auto) 1.15 K/uL Monocytes # (Auto) 0.47 K/uL Eosinophils # (Auto) 0.15 K/uL Basophils # (Auto) 0.02 K/uL RDW Standard Deviation 45.8 fL RDW Coefficient of Variation 13.5 % Immature Granulocyte % (Auto) 0.3 % Immature Granulocyte # (Auto) 0.01 K/uL Sodium Level 138 mmol/L Potassium Level 4.3 mmol/L Chloride Level 102 mmol/L Carbon Dioxide Level 31 mmol/L Anion Gap 5.0 mmol/L Blood Urea Nitrogen 15 mg/dl Creatinine 0.69 mg/dl Est Creatinine Clear Calc Drug Dose 69.2 ml/min Estimated GFR () 102.9 Estimated GFR (Non- 88.8 BUN/Creatinine Ratio 22.2 Random Glucose 88 mg/dl Calcium Level 9.3 mg/dl Diagnostic Results Brain MRI WITHOUT CONTRAST 10/31/16 at 9:26 PM IMPRESSION: 1. Identical exam compared to the prior study. 2. Foci of increased signal within the periventricular and deep white matter regions throughout both cerebral hemispheres unchanged. 3. Given patient's age, this is most consistent with that of chronic small vessel change. A late onset demyelinating disorder is a secondary consideration. Brain MRI WITH AND WITHOUT CONTRAST 10/30/2016 6:05 PM IMPRESSION: No significant change compared to the prior study. No acute intracranial abnormality. CT OF THE HEAD WITHOUT CONTRAST 10/30/2016 1:42 PM IMPRESSION: No acute intracranial findings. CHEST ONE VIEW PORTABLE 10/30/2016 1:06 PM IMPRESSION: No acute cardiopulmonary findings. Assessment and Plan CHANGE IN MENTAL STATUS Initially thought to be TIA versus CVA Patient and had witnessed seizure EEG suggests possible epileptiform waves but waiting for neurology to read and interpret Start empirically on Keppra last night No further evidence of seizure since Keppra started Continue Keppra per neurology and discontinue Plavix Outpatient follow-up with neurology in 10-14 days Discussed case with Sandra Bledsoe PA-C who will follow-up with Dr. Rehman Ambulate as tolerated HYPERTENSION Hydralazine when necessary No outpatient anti-hypertensives SBP now stable LYME DISEASE Doxycycline 100 mg by mouth twice a day Patient had been started as an outpatient Does not appear to be Lyme encephalitis as patient has no other symptoms Continue follow-up outpatient with her primary care provider DVT PROPHYLAXIS Enoxaparin IVANNA ibarra and SCDs Please refer to Dr. Patel's addendum for further recommendations Thank you for including us in the care of this patient
[2016-11-01 19:41] VITALS: BP 99/65; PULSE 53; TEMP 36.9; O2SAT 96
[2016-11-01] MEDS ORDERED: NURSING VERBAL MED ORDER ONE (20:30)
[2016-11-01] MEDS ORDERED: PSYLLIUM 58.6% PWD PACK S\\F PO PRN (21:00)
[2016-11-01 23:54] VITALS: BP 104/64; PULSE 47; TEMP 36.6; O2SAT 95
[2016-11-02 03:26] VITALS: BP 110/73; PULSE 52; TEMP 36.5; O2SAT 98
[2016-11-02 06:25] LABS: HEMATOCRIT 39.3 % (37-47); MEAN CELL VOLUME 90.6 fL (80-100); MEAN CORPUSCULAR HEMOGLOBIN 32.3 pg (25-34); MEAN CORPUSCULAR HGB CONC 35.6 g/dl (32-36); MEAN PLATELET VOLUME 9.3 fL (7.4-10.4); PLATELET COUNT 203 K/uL (130-400); RED BLOOD COUNT 4.34 M/uL (4.2-5.4); WHITE BLOOD COUNT 3.22 K/uL (4.8-10.8)
[2016-11-02 06:30] LABS: BUN/CREATININE RATIO 26.9 (10-20); CREATININE 0.65 mg/dl (0.60-1.20)
[2016-11-02 06:32] LABS: BASO % 0.6 %; BASO ABS # 0.02 K/uL (0-0.2); COMPLETE YES; EOS % 6.5 %; LYMPH ABS # 1.61 K/uL (1.2-3.4); MONO % 11.5 %; NEUT % 31.4 %
[2016-11-02 07:36] VITALS: BP 115/74; PULSE 50; TEMP 36.5; O2SAT 95
[2016-11-02] MEDS: LEVETIRACETAM 500 MG TAB PO SCH (07:50)
[2016-11-02] MEDS: ASPIRIN 81 MG ECTAB PO SCH (07:50)
[2016-11-02] MEDS: CEROVITE ADV FORMULA TAB PO SCH (07:50)
[2016-11-02] MEDS: DOXYCYCLINE HYCLATE 100 MG CAP PO SCH (07:51)
[2016-11-02] MEDS: OMEGA-3 (PURIFIED FISH OIL) 1 GM CAP PO SCH (07:51)
[2016-11-02] MEDS: MAGNESIUM OXIDE 400 MG TAB PO SCH (07:51)
--- NOTE | 2016-11-02 10:12 | CARDIOLOGY CONSULTATION ---
DATE OF CONSULTATION: 11/02/2016 I was asked to discuss the findings of this patient's echocardiogram with Dr. Patel. There was evidence of a small patent foramen ovale. I discussed the fact that this is a common finding and does not appear to be involved in her current presentation. As such, no particular intervention is required at this time. I did not perform a complete consult and no consult was billed. HEIDY
[2016-11-02 11:28] VITALS: BP 114/70; PULSE 47; TEMP 36.7; O2SAT 95
--- NOTE | 2016-11-02 14:51 | ELECTROENCEPHALOGRAPH REPORT ---
REQUESTING: Dr. Sandra Rehman. CLINICAL DIAGNOSIS: Possible focal seizure. EEG DIAGNOSIS: Essentially normal during wakefulness. DESCRIPTION OF TRACING: This EEG obtained during full clinical wakefulness is a bedside recording and is of good technical quality. A simultaneous video analysis of patient movement and behavior is recorded and indicates no significant movement or muscle artifacts. Photic stimulation was performed. Hyperventilation was not. Drowsiness and light sleep were not recorded. Under these conditions, there is evidence for normal appearing background rhythm in the alpha range of up to 10 Hz of maximum frequency and 30 microvolts of maximum amplitude. This is maximum posterior head regions and bilaterally symmetrical. Polymorphic mid frequency theta activity is seen over all head regions without clear focal or regional predominance. Anterior head region maximum bilaterally symmetrical low voltage fast activity in the beta range is present. Photic stimulation provokes a modest driving response without a photomyogenic or photoparoxysmal component. At no time during the waking tracing is there evidence for potentially epileptogenic activity in the form of polyspike or spike wave bursts, focal sharp waves or focal spikes. INTERPRETATION: This EEG is essentially normal during wakefulness without evidence for focal or generalized encephalopathy and without evidence for potentially epileptogenic activity.
[2016-11-02 16:00] VITALS: BP 126/83; PULSE 59; TEMP 37.3; O2SAT 96
[2016-11-02] MEDS ORDERED: LEVE500T PO (16:05)
--- NOTE | 2016-11-02 16:07 | Discharge Instructions ---
Discharge Instructions Date of Service Nov 02, 2016. Admission Reason for Admission: Stroke Discharge Discharge Diagnosis / Problem: partial seizure Discharge Goals Goal(s): Improve disease control Activity Recommendations Activity Limitations: resume your previous activity . Current Hospital Diet Patient's current hospital diet: Regular Diet Discharge Diet Recommended Diet: Regular Diet Pending Studies Studies pending at discharge: no Laboratory Results Hemoglobin A1c Test 10/30/16 11:56 Range/Units Estimated Average Glucose 103 mg/dl Hemoglobin A1c 5.2 4.5-5.6 % Lipid Panel Test 10/31/16 06:18 Range/Units Triglycerides Level 93 0-150 mg/dl Cholesterol Level 218 H 0-200 mg/dl HDL Cholesterol 101 mg/dl Cholesterol/HDL Ratio 2.2 LDL Cholesterol, Calculated 98 mg/dl Medical Emergencies . Who to Call and When: Medical Emergencies: If at any time you feel your situation is an emergency, please call 911 immediately. . Non-Emergent Contact Non-Emergency issues call your: Primary Care Provider . . "Provider Documentation" section prepared by Garth Castañeda. VTE Core Measure Inpt VTE Proph given/why not?: Treatment not indicated
[2016-11-02 16:12] VITALS: BP 126/83; PULSE 59; TEMP 37.3; O2SAT 96
--- NOTE | 2016-11-03 01:07 | DISCHARGE SUMMARY ---
Please see dictated H and P for full details of presentation. The patient is a 71-year-old female who presented after a bicycle ride with intermittent numbness of her fingers, foot, her eyes, palpitation, numbness of the right side of her face, which resolved. 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 She had 2 episodes of tick bites and was being treated with doxycycline. She was seen in consultation by Sandra Bledsoe for neurology, who discussed the case with Dr. Sandra Rehman. 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 They recommended to stop Plavix and Lovenox and have an outpatient evaluation by Dr. Rehman, the neurologist. She had an echocardiogram performed, this was reviewed by Dr. Jones. There was evidence of a small patent foramen ovale, this finding is common, does not appear to be involved with her current presentation, and for that reason, no intervention was required. EEG was performed and was normal without evidence for focal or generalized encephalopathy and without evidence of potentially epileptogenic activity. Time spent in review of the chart and discussion with the patient on the day of discharge 35 minutes. Advanced care planning was also discussed with the patient in detail. HEIDY
== END 2016-11-02 17:54 | disposition home or self-care (01) | DRG 92 ==
LOC: ENRESERVDT → ENRESERVTM → EDSEX 12:15 → EDBD 12:15 → C.EDC 12:16 → C.2T 14:47
PROVIDERS: ADMIT Internal Medicine; ATTEND Hospitalist
DX: D18.02 Hemangioma of intracranial structures (principal); G40.109 Localization-related (focal) (partial) symptomatic epilepsy and epileptic syndromes with simple partial seizures, not intractable, without status epilepticus; Q21.1 Atrial septal defect; A69.20 Lyme disease, unspecified; Z86.73 Personal history of transient ischemic attack (TIA), and cerebral infarction without residual deficits; Z87.891 Personal history of nicotine dependence; Z83.3 Family history of diabetes mellitus; R20.0 Anesthesia of skin

== ENCOUNTER → 2017-08-21 | Outpatient (CLI) | payer BC ==
[~2017-08-21] MED LIST changes: -ASPI325T39 PO; +ASPI81TA28 PO; +LEVE500T PO; +PHYT100T PO; +VITBC PO
[2017-08-21 14:38] LABS: BASO % 0.5 %; BASO ABS # 0.02 K/uL (0-0.2); EOS % 3.3 %; EOS ABS # 0.13 K/uL (0-0.5); HEMATOCRIT 42.1 % (37-47); HEMOGLOBIN 14.5 g/dL (12.0-16.0); LYMPH ABS # 1.31 K/uL (1.2-3.4); MEAN CELL VOLUME 94.2 fL (80-100); MEAN CORPUSCULAR HEMOGLOBIN 32.4 pg (25-34); MEAN CORPUSCULAR HGB CONC 34.4 g/dl (32-36); MEAN PLATELET VOLUME 9.6 fL (7.4-10.4); MONO % 8.1 %; MONO ABS # 0.32 K/uL (0.11-0.59); NEUT % 55.1 %; NEUT ABS # 2.19 K/uL (1.4-6.5); PLATELET COUNT 213 K/uL (130-400); RED CELL DISTRIBUTION WIDTH SD 48.1 fL (36.4-46.3); WHITE BLOOD COUNT 3.97 K/uL (4.8-10.8)
[2017-08-21 15:47] LABS: ALT/SGPT 34 U/L (12-78); BLOOD UREA NITROGEN 15 mg/dl (7-18); CALCIUM 9.5 mg/dl (8.5-10.1); CARBON DIOXIDE 28 mmol/L (21-32); CHOLESTEROL 217 mg/dl (0-200); CREATININE 0.63 mg/dl (0.60-1.20); GLUCOSE 84 mg/dl (70-99); SODIUM 136 mmol/L (136-145); URIC ACID 5.1 mg/dl (2.6-7.2)
[2017-08-21 15:56] LABS: ALKALINE PHOSPHATASE 64 U/L (45-117); AST/SGOT 26 U/L (15-37); LDL CHOLESTEROL CALCULATED 94 mg/dl; TOTAL PROTEIN 7.2 gm/dl (6.4-8.2); TRANSFERRIN 263 mg/dl (200-360)
[2017-08-22 06:10] LABS: HEMOGLOBIN A1C 5.2 % (4.5-5.6)
== END | disposition home or self-care (01) ==
LOC: C.LAB 13:39
PROVIDERS: ATTEND Family Medicine
DX: E88.81 Metabolic syndrome and other insulin resistance (principal); E55.9 Vitamin D deficiency, unspecified; D51.9 Vitamin B12 deficiency anemia, unspecified; E78.9 Disorder of lipoprotein metabolism, unspecified; R53.83 Other fatigue; G40.109 Localization-related (focal) (partial) symptomatic epilepsy and epileptic syndromes with simple partial seizures, not intractable, without status epilepticus

== ENCOUNTER → 2017-08-28 | Outpatient (CLI) | payer BC ==
[~2017-08-28] MED LIST changes: +GADAVIST IV PRN
--- NOTE | 2017-08-28 10:42 | DIAGNOSTIC IMAGING REPORT ---
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 Follow-up exam. COMPARISON: MRI the brain 10/31/2016 TECHNIQUE: Multiplanar multisequence MRI of the brain was obtained both with and without the use of 6 mL Gadavist Using seizure protocol. FINDINGS: No restricted diffusion to suggest acute infarction. 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 The remaining midline structures including the corpus callosum, brain stem, optic chiasm, infundibulum and pituitary gland appear unremarkable in the sagittal T1 series. No cerebellar tonsillar herniation. Degenerative changes are seen within the imaged cervical spine. There is no acute intracranial hemorrhage, midline shift, abnormal extra-axial collections, hydrocephalus or intracranial mass identified. Scattered areas of T2/FLAIR prolongation are again seen within the subcortical and periventricular white matter of the cerebral hemispheres bilaterally suggesting chronic microvascular ischemic changes. The major flow voids at the level of the skull base appear patent. Mastoid air cells are generally clear. Hypoplasia of the right frontal sinus. Sinuses are generally clear. The orbits, scalp and calvarium are within normal limits. The bilateral mesial temporal lobes appear to be within normal limits. No seizure focus or evidence of mesial temporal sclerosis. No evidence of cortical dysplasia. No pathologic blooming artifact identified. No abnormal intra-axial or extra-axial enhancement identified. IMPRESSION: 1. No acute intracranial abnormality identified. No acute infarction or abnormal enhancement. 2. No seizure focus identified. 3. Suggested mild chronic microvascular ischemic changes. 4. Unchanged 5 mm pineal gland cyst. The above report was generated using voice recognition software. It may contain grammatical, syntax or spelling errors. Electronically signed by: Arnoldo Constantino M.D. 08/28/2017 10:41 AM Dictated Date/Time: 08/28/2017 10:32 AM
== END | disposition home or self-care (01) ==
LOC: C.MRI 09:44
PROVIDERS: ATTEND Physician Assistant
DX: Q27.9 Congenital malformation of peripheral vascular system, unspecified (principal); E34.8 Other specified endocrine disorders; Z88.1 Allergy status to other antibiotic agents

== ENCOUNTER 2023-10-19 02:33 | Observation (INO) ==
[2023-10-19] MEDS: OPTIRAY 350 500ml IV ONE (04:20)
--- NOTE | 2023-10-19 04:31 | History & Physical Report ---
Date of Service October 19, 2023 Assessment & Plan (1) Stroke-like symptoms: Plan: 78yo female with prior hemorrhagic CVA, known PFO, heterozygous Factor V gene mutation presenting with acute onset vertigo and nausea. ?Peripheral vs central cause. Patient's symptoms persistent but have improved since being in the ER. Mild dysmetria noted on exam. -Observation to medical with telemetry -Neuro checks and NIHSS per protocol -Patient recently had HgbA1C, Lipid panel and Echo performed. See above. She does have a know PFO - if she proves to have a stroke should re-visit option of PFO closure -Check MRI brain -PT/OT evaluation -Zofran PRN nausea -Meclizine PRN vertigo -Continue home ASA 81mg po daily -Add Plavix 75mg po daily for now -Add Atorvastatin 40mg po daily for now -Tick panel sent by ER - patient is an avid hiker History of Present Illness Chief Complaint: dizziness Primary Care Provider: Darrin Santizo MD 78yo female with history of thoracic ascending aortic aneurysm, prior left parietal hemorrhagic CVA in 2017, known patent foramen ovale (noted on 2017 echo) and heterozygous Factor V Leiden mutation with prior VTE 45 years ago presenting with acute vertigo, nausea. Patient last seen well at 22:30. She woke at 01:15 and had some difficulty standing due to dizziness. Daughter states that she was holding onto the door frame for balance. She had nausea as well as slurred speech. Symptoms have been persistent, still with ongoing dizziness and nausea. No headache, fever, chills, falls or trauma. No chest pain, cough, SOB, diarrhea or abdominal pain. In the ER she is afebrile, HD stable Er Course: ASA 324mg Zofran Pepcid Allergies Allergy/AdvReac Type Severity Reaction Status Date / Time cefuroxime Allergy Intermediate RASH Verified 08/24/23 10:46 Home Medications Medication Instructions Recorded Confirmed Type ascorbic acid (vitamin C) 500 mg 1 cap PO QAM 05/07/19 08/24/23 History capsule aspirin 81 mg tablet,delayed 81 mg PO QAM 05/07/19 08/24/23 History release magnesium oxide 500 mg capsule 500 mg PO PM 05/07/19 08/24/23 History phytonadione (vitamin K1) 100 mcg 100 mcg PO PM 05/07/19 08/24/23 History tablet zinc gluconate 50 mg tablet 50 mg PO PM 05/07/19 08/24/23 History Calcium Citrate Tab 1 tab PO BID 08/23/21 08/24/23 History ibuprofen 200 mg tablet 200 mg PO Q6H PRN Pain 12/13/21 08/24/23 History kf-0-pbg-epa-fish oil-vit D3 300 1 cap PO BID 12/13/21 08/24/23 History mg-1,000 mg-1,000 unit capsule (Fish Oil-Vit D3) lifitegrast 5 % eye drops in a 1 drp ophthalmic (eye) BID 03/23/22 08/24/23 History dropperette (Xiidra) cholecalciferol (vitamin D3) 125 125 mcg PO QAM 04/28/22 08/24/23 History mcg (5,000 unit) capsule folic acid-vit B6-vit B12 0.8 1 tab PO QPM 04/28/22 08/24/23 History mg-50 mg-100 mcg tablet (Homocysteine Formula) lactobacillus combination no.4 3 3,000 mmu cells PO QPM 04/28/22 08/24/23 History billion cell capsule (Probiotic) Cannabis incture 1:1 THC/CBD 0.025 mg PO 05/01/23 08/24/23 History clindamycin HCl 150 mg capsule 600 mg (4 x 150 mg) PO .COMPLEX #4 05/01/23 08/24/23 Rx (Cleocin HCl) caps 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 Patent foramen ovale dx 2017 with CVA, no f/u with cardio Abnormal mammogram Osteopenia Herniated intervertebral disc of lumbar spine History of seizure last seizure 2016; does not follow with neurology saw Dr Armas, believed related to Lyme's, negative EEG and has not taken medication MTHFR mutation History of CVA (cerebrovascular accident) 1999; numbness 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 which if given hormone therapy predisposes to clots) History of DVT (deep vein thrombosis) RLE with Surgical History History of radiofrequency ablation (RFA) of nerve of cervical spine History of cataract surgery History of carpal tunnel release of both wrists S/P trigger finger release History of tonsillectomy History of total shoulder replacement Rt History of colonoscopy History of esophagogastroduodenoscopy (EGD) History of loop electrical excision procedure (LEEP) H/O colposcopy with cervical biopsy S/P endometrial ablation S/P dilation and curettage Family History Mother , age 84 Colorectal cancer Sudden , Onset Age: 84 sudden cardiac Cerebral aneurysm Brother Colorectal cancer Melanoma Daughter Thrombosis of inferior vena cava Father Heart disease CABG Other No family history of adverse response to anesthesia Denies family history of Ovarian cancer Breast cancer Social History Smoking Status: Former smoker Tobacco Type: Cigarettes Cigarettes Per Day: started as a teen until age 30; Second Hand Exposure: No; Do You Dip or Chew Tobacco: No; Hx Alcohol Use: Yes Alcohol type: beer and wine Alcohol Intake Frequency: 4 or More x per/Week Hx Substance Use: No Preferred Language: Citizen Of [place] Communication Ability: Effective Visual Impairment: Limited Hearing Ability: Normal Chicken Sexer Required: No Beliefs That Will Affect Care: None marital status: Current Living Situation: Family Current Living Situation Comment: dtr currently living with pt current occupational status: retired Feels Safe at Home: Yes Safety Concerns: Feels Safe At This Time Childhood Exposure to Second-Hand Smoke: Yes Diet: regular caffeine: Yes Dental Care, Regularly: Yes Physical Activity Frequency: Daily Seatbelt Use: always Sunscreen Use: Yes Assistive Devices: CPAP and Glasses Review of Systems Review of Systems: All systems reviewed & are unremarkable except as noted in HPI & below Physical Exam Physical Exam: General: patient resting comfortably, NAD, non-toxic in appearance, AA&O x 4, eyes closed Skin: warm, dry, intact, no rashes or lesions HEENT: NC/AT, PERRL, EOMI, anicteric sclera, conjunctiva without injection, external ear normal to inspection and nontender, nares patent, moist mucus membranes, dentition intact, no oropharyngeal lesions, neck supple, trachea midline, no LAD, no thyromegaly, no JVD Heart: +S1/S2, regular, no m/r/g Lungs: equal air entry bilaterally, no rales/rhonchi/wheezes Abd: +BS, soft, NT/ND, no masses/organomegaly/ascites Ext: warm, 2+ pulses in UE/LE bilaterally, no clubbing/cyanosis or edema Neuro: AA&O x 4, speech clear and appropriate, no facial droop. CN II-XII grossly intact with mildly decreased hearing in right ear. Sensation to light touch intact bilaterally, MS 5/5 in UE/LE bilaterally, mild dysmetria noted with [id number] testing on the left. Gait not assessed HINTS exam limited due to chronic neck pain - she had some unilateral rightward end point nystagmus, limited head impulse test but did appear to have an appropriate saccade, negative skew Results & Data Results & Data Vital Signs (Past 12 Hours) Vital Signs Pulse Resp BP Pulse Ox O2 Del Method 10/19/23 04:15 58 L 16 135/90 95 Room Air Laboratory Results Laboratory Results WBC 3.74 K/ul (4.8-10.8) L 10/19/23 02:48 RBC 3.76 M/uL (4.20-5.40) L 10/19/23 02:48 Hgb 12.0 g/dl (12.0-16.0) 10/19/23 02:48 Hct 34.7 % (37.0-47.0) L 10/19/23 02:48 MCV 92.3 fL (80.0-100.0) 10/19/23 02:48 MCH 31.9 pg (25.0-34.0) 10/19/23 02:48 MCHC 34.6 g/dL (32.0-36.0) 10/19/23 02:48 RDW Std Deviation 47.6 fL (36.4-46.3) H 10/19/23 02:48 RDW Coeff of Carmen 14.0 % (11.5-14.5) 10/19/23 02:48 Plt Count 171 K/uL (130-400) 10/19/23 02:48 MPV 9.3 fL (9.4-12.4) L 10/19/23 02:48 Immature Gran % (Auto) 0.3 % 10/19/23 02:48 Neut % (Auto) 35.8 % 10/19/23 02:48 Lymph % (Auto) 46.8 % 10/19/23 02:48 [place] % (Auto) 12.3 % 10/19/23 02:48 Eos % (Auto) 4.0 % 10/19/23 02:48 Baso % (Auto) 0.8 % 10/19/23 02:48 Neut # (Auto) 1.34 K/uL (1.40-6.50) L 10/19/23 02:48 Lymph # (Auto) 1.75 K/uL (1.20-3.40) 10/19/23 02:48 [place] # (Auto) 0.46 K/uL (0.11-0.59) 10/19/23 02:48 Eos # (Auto) 0.15 K/uL (0.00-0.50) 10/19/23 02:48 Baso # (Auto) 0.03 K/uL (0.00-0.20) 10/19/23 02:48 Immature Gran # (Auto) 0.01 K/uL (0.01-0.20) 10/19/23 02:48 PT 12.1 Seconds (9.0-12.0) H 10/19/23 02:48 INR 1.1 (0.9-1.1) 10/19/23 02:48 Sodium 133 mmol/L (136-145) L 10/19/23 02:48 Potassium 3.6 mmol/L (3.5-5.1) 10/19/23 02:48 Chloride 100 mmol/L (98-107) 10/19/23 02:48 Carbon Dioxide 28 mmol/L (21-32) 10/19/23 02:48 Anion Gap 5 (3-11) 10/19/23 02:48 BUN 18 mg/dl (6-23) 10/19/23 02:48 Creatinine 0.67 mg/dl (0.6-1.2) 10/19/23 02:48 Est Cr Clr Drug Dosing Not Reportable 10/19/23 02:48 Est GFR ( Amer) 99.0 ml/min 10/19/23 02:48 Est GFR (Non-Af Amer) 85.4 ml/min 10/19/23 02:48 BUN/Creatinine Ratio 26.9 (10-20) H 10/19/23 02:48 Glucose 131 mg/dl (70-99(Fasting)) H 10/19/23 02:48 Calcium 8.6 mg/dl (8.6-10.3) 10/19/23 02:48 Magnesium 1.9 mg/dl (1.7-2.4) 10/19/23 02:48 Total Bilirubin 0.5 mg/dl (0.2-1.0) 10/19/23 02:48 AST 23 U/L (13-39) 10/19/23 02:48 ALT 19 U/L (7-52) 10/19/23 02:48 Alkaline Phosphatase 48 U/L (34-104) 10/19/23 02:48 Troponin I High Sens 3.5 pg/ml (0-14) 10/19/23 02:48 Total Protein 5.8 gm/dl (6.0-8.3) L 10/19/23 02:48 Albumin 3.6 gm/dl (3.4-5.0) 10/19/23 02:48 Globulin 2.2 gm/dl (2.5-4.0) L 10/19/23 02:48 Albumin/Globulin Ratio 1.6 (0.9-2) 10/19/23 02:48 Urine Color Dark Yellow 10/19/23 Unknown Urine Appearance Clear (Clear) 10/19/23 Unknown Urine pH 7.0 (4.5-7.5) 10/19/23 Unknown Ur Specific [place] > 1.045 (1.000-1.030) H 10/19/23 Unknown Urine Protein Negative (Negative) 10/19/23 Unknown Urine Glucose (UA) Negative (Negative) 10/19/23 Unknown Urine Ketones Negative (Negative) 10/19/23 Unknown Urine Blood Negative (Negative) 10/19/23 Unknown Urine Nitrite Negative (Negative) 10/19/23 Unknown Urine Bilirubin Negative (Negative) 10/19/23 Unknown Urine Urobilinogen Negative (Negative) 10/19/23 Unknown Ur Leukocyte Esterase Negative (Negative) 10/19/23 Unknown Blood Type A Positive 10/19/23 02:48 Antibody Screen NEGATIVE 10/19/23 02:48 Impressions Head CTA 10/19/23 02:33 CR Exam(s): CTA HEAD IV Amt: 115 ml optiray 350 EXAM: CT Angiography Head With Intravenous Contrast CLINICAL HISTORY: stroke alert TECHNIQUE: Axial computed tomographic angiography images of the head with intravenous contrast. CTDI is 26.99 mGy and DLP is 464.33 mGy-cm. Automated exposure control was utilized for the study. A dose lowering technique was utilized adhering to the principles of ALARA. MIP reconstructed images were created and reviewed. COMPARISON: No relevant prior studies available. FINDINGS: Right internal carotid artery: Mild calcified plaque in the distal right internal carotid artery with less than 20% stenosis. No aneurysm. Right anterior cerebral artery: Unremarkable. No occlusion or significant stenosis. No aneurysm. Right middle cerebral artery: Unremarkable. No occlusion or significant stenosis. No aneurysm. Right posterior cerebral artery: Unremarkable. No occlusion or significant stenosis. No aneurysm. Right vertebral artery: Unremarkable as visualized. Left internal carotid artery: No acute findings. Intracranial segment is patent with no significant stenosis. No aneurysm. Left anterior cerebral artery: Unremarkable. No occlusion or significant stenosis. No aneurysm. Left middle cerebral artery: Unremarkable. No occlusion or significant stenosis. No aneurysm. Left posterior cerebral artery: Unremarkable. No occlusion or significant stenosis. No aneurysm. Left vertebral artery: Unremarkable as visualized. Basilar artery: Unremarkable. No occlusion or significant stenosis. No aneurysm. IMPRESSION: No acute findings in the arteries of the head/brain. Communications: 10/19/23 03:10 Call Doctor Regarding Stroke, Per Dr Menendez, "Cancel CD, already spoke with " Electronically signed by: Robert Menendez MD 10/19/23 03:08 AM Diagnostic Findings Patient with known PFO on echo from 2017 Last echo 06/09/23 with normal LV size and function. EF 60-65%. No regional WMA. Severe asymmetric hypertrophy involving the basal anteroseptum. Moderate left atrial dilation. Sclerotic aortic valve. HgbA1C obtained 10/06/23 = 5.4 Lipid panel obtained 10/06/23 = Cholesterol 191, LDL=81, HDL=97, TG=63 Code Status & VTE Plan VTE Prophylaxis Plan VTE Prophylaxis will be ordered: Yes PG Care Time/CCT Total # of Minutes Spent Total Time Spent with Patient: Total time spent is greater than 50% in coordination of care (as documented) at patient's floor/unit and/or counseling patient: Coding Level of Care Code 07174 INT INP/OBS CARE 2MIN Diagnoses Stroke-like symptoms R29.90
[2023-10-19 04:45] LABS: Alanine Aminotransferase 19 U/L (7-52); Albumin Globulin Ratio 1.6 (0.9-2); Albumin Level 3.6 gm/dl (3.4-5.0); Alkaline Phosphatase 48 U/L (34-104); Anion Gap 5 (3-11); Aspartate Aminotransferase 23 U/L (13-39); BUN Creatinine Ratio 26.9 (10-20); Bilirubin,Total 0.5 mg/dl (0.2-1.0); Blood Urea Nitrogen 18 mg/dl (6-23); Calcium 8.6 mg/dl (8.6-10.3); Carbon Dioxide 28 mmol/L (21-32); Chloride 100 mmol/L (98-107); Est GFR (Non-African American) 85.4 ml/min; Globulin 2.2 gm/dl (2.5-4.0); Glucose 131 mg/dl (70-99(Fasting)); Magnesium 1.9 mg/dl (1.7-2.4); Potassium 3.6 mmol/L (3.5-5.1); Sodium 133 mmol/L (136-145); Total Protein 5.8 gm/dl (6.0-8.3)
[2023-10-19 04:47] LABS: Basophils # (auto) 0.03 K/uL (0.00-0.20); Basophils % (auto) 0.8 %; Eosinophils # (auto) 0.15 K/uL (0.00-0.50); Hematocrit (blood only) 34.7 % (37.0-47.0); Immature Granulocytes # (auto) 0.01 K/uL (0.01-0.20); Immature Granulocytes % (auto) 0.3 %; Lymphocytes # (auto) 1.75 K/uL (1.20-3.40); Lymphocytes % (auto) 46.8 %; Mean Corpuscular Hemoglobin 31.9 pg (25.0-34.0); Mean Corpuscular Hgb Conc 34.6 g/dL (32.0-36.0); Mean Corpuscular Volume 92.3 fL (80.0-100.0); Mean Platelet Volume 9.3 fL (9.4-12.4); Monocytes # (auto) 0.46 K/uL (0.11-0.59); Monocytes % (auto) 12.3 %; Neutrophils # (auto) 1.34 K/uL (1.40-6.50); Neutrophils % (auto) 35.8 %; Platelet Count 171 K/uL (130-400); RDW Standard Deviation 47.6 fL (36.4-46.3); Red Blood Count 3.76 M/uL (4.20-5.40); White Blood Count 3.74 K/ul (4.8-10.8)
[2023-10-19 04:50] LABS: INR 1.1 (0.9-1.1); Prothrombin Time 12.1 Seconds (9.0-12.0)
[2023-10-19] MEDS ORDERED: ONDANSETRON INJ 2 MG/ML 2 ML VIAL IV PRN (04:55)
[2023-10-19] MEDS ORDERED: MECLIZINE HCL 25 MG TAB PO PRN (04:55)
[2023-10-19] MEDS ORDERED: ACETAMINOPHEN 325 MG TAB PO PRN (04:55)
[2023-10-19] MEDS ORDERED: PHARMACIST DISCHARGE MED REC CONSULT PRN (04:55)
--- NOTE | 2023-10-19 05:20 | Emergency Department Note ---
Impression & Plan Stroke-like symptoms, Dizziness, Nausea & vomiting ED Provider Note ED Provider Note NAME: KEENAN CABEZAS AGE:78 SEX: Female : 1945 ARRIVES VIA: EMS INFORMANT: Patient ED PROVIDER(s): Adriana Muir DO CHIEF COMPLAINT: Strokelike symptoms, right leg weakness, vomiting HPI: This is a 78-year-old female brought in by EMS due to concern for strokelike symptoms. Patient made a stroke alert prehospital. Patient sent urgently for CT. EMS reports that patient went to bed at 2300 and awoke around 0115 to use the bathroom and had right foot and leg weakness and was dragging her foot and felt unsteady. She complained of dizziness additionally. They state en route she had recurrent episodes of vomiting and did receive 4 mg of IV Zofran. Patient here complains of dizziness, denies weakness or headache. She denies any recent new medications. She denies any recent trauma. Patient presented during EMR downtime. PAST MEDICAL HISTORY:See Below PAST SURGICAL HISTORY:See Below FAMILY HISTORY:See Below SOCIAL HISTORY:See Below HOME MEDICATIONS:See Below ALLERGIES:See Below VITALS:See Below PHYSICAL EXAMINATION: GENERAL: alert, unwell appearing, well nourished, no distress, non-toxic EYE EXAM: normal conjunctiva, PERRL and EOM's grossly intact, no obvious nystagmus OROPHARYNX: no exudate, no erythema, lips, buccal mucosa, and tongue normal and mucous membranes are dry NECK: supple, no nuchal rigidity, no adenopathy, non-tender LUNGS: Clear to auscultation. Normal chest wall mechanics, no w/r/r HEART: no murmurs, S1 normal and S2 normal ABDOMEN: abdomen soft, non-tender, normo-active bowel sounds, no masses, no rebound or guarding. BACK: Back is symmetrical on inspection and there is no deformity, no midline tenderness, no CVA tenderness. SKIN: no rashes, petechiae, orbruising UPPER EXTREMITIES: upper extremities are grossly normal. FROM, nml pulses b/l. LOWER EXTREMITIES: No pitting edema. FROM, nml pulses b/l. NEURO EXAM: Normal sensorium, cranial nerves II-XII grossly intact, normal speech, no facial droop,nogross weakness of arms, no gross weakness of legs. Gross sensation intact. No ataxia.NIHSS 0 Vital Signs: reviewed and remarkable Differential Diagnosis: ischemic Stroke, hemorrhagic stroke, bells palsy, mass, neoplasm, migraine headache, seizure, subarachnoid hemorrhage, TIA, and transient global amnesia. MEDICAL DECISION MAKING: This is a 78-year-old female who presents emergency department with concern for strokelike symptoms and stroke alert called prehospital. Patient was afebrile vital signs stable. By time my evaluation at bedside the previously reported right lower extremity weakness had resolved. Patient in no focal deficits on my bedside exam. Given concern due to age and prior reported stroke, case discussed with on-call stroke neurology from [facility]. Patient evaluated by neurology at bedside. After their evaluation it was determined the patient was not a TNK candidate as she was outside the window and had also had complete resolution of symptoms. Neurology felt other possible diagnoses were more likely at this time. There was some delay given CTs were not available for [facility] neurology to review and there was delay in receiving readings on these. Patient remained hemodynamically stable. She was given IV Zofran and IV Pepcid due to the nausea vomiting as a precaution and maintained on IV fluids. Family was updated multiple times by myself throughout this process and was eventually brought to bedside. Case discussed with hospitalist team for additional evaluation and management. Consultation(s): 0250: Discussed with pharmacist Blaine regarding possible need for TNK, awaiting neurology evaluation. 0253: Discussed via phone with Dr. Baig. She will evaluate the patient at bedside. 0305: Discussed with family while neurology evaluating the patient. They state patient did have a stroke many years ago while she was on HRT. She was found to have a clotting disorder at that time which was familiar, and she was started on low-dose aspirin. They state at 1 point in time she did have a possible seizure disorder and was taking Keppra although she has since stopped this. They also state she was previously told there was a problem with her aorta but they cannot recall what this problem is. They also states she is outside a lot and does a lot of hiking. They states she also uses a marijuana tincture for ongoing neck pain. 0317: I contacted administrative technician to see if they could find prior CTs in the system as patient presented during downtime. There was a CT chest from July which did show a 4.5 cm aneurysmal dilatation of the aorta without dissection. 0321: Patient reevaluated at bedside while Dr. Baig still evaluating. She feels at this time based on her conversation with the patient that she is outside the window for TNK and given no deficits on bedside exam she does not feel patient is a TNK candidate. She does recommend admission for additional stroke evaluation as well as continued monitoring. She was unable to view the CTs that were sent by the technical photographer twice into their system. We did receive a call from overnight outside radiology that the CT head without contrast and the CT angio head were negative per their read, there is no read yet for the CT angio neck. 0343: Dr. Baig states she is still in unable to view any of the CT imaging. I did update her that they read had been posted for the CT angio neck which was reassuring. She recommends initiating 325 mg of aspirin on the patient in addition to the other stroke evaluation including MRI, echo, hemoglobin A1c and lipid panel, as well as PT OT evaluation. She recommends permissive hypertension at this time. 0405: Discussed with Dr. Menendez, [facility] hospitalist, for additional evaluation and management. ER Treatment Provided: See below Diagnostics Interpreted By Me: -ECG: Sinus bradycardia at 46, normal axis, normal intervals, no acute ST/T wave changes -Cardiac Monitoring: An order was placed for continuous cardiac monitoring. The monitor shows a rate of 57 with sinus bradycardia rhythm. -Laboratory studies: As stated above and show below. -Imaging studies: X-ray Chest: A single view study of the chest was reviewed and was negative for cardiomegaly, focal infiltrate, effusion, pulmonary edema, or wide mediastinum. Triage Nursing Note Reviewed Prior/Outside Records Reviewed -prior CTA chest from July 2023 Critical Care: Critical care of 56 min performed to assess and manage high likelihood of life- threatening CVA, involving labs and imaging performed with assessment to evaluate strokelike symptoms diagnosis with frequent reassessment. This time includes bedside time, treatment discussions with patient/family/consultants, documentation time and excludes procedure time. 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 which if given hormone therapy predisposes to clots) History of DVT (deep vein thrombosis) RLE with Surgical History History of radiofrequency ablation (RFA) of nerve of cervical spine History of cataract surgery History of carpal tunnel release of both wrists S/P trigger finger release History of tonsillectomy History of total shoulder replacement Rt History of colonoscopy History of esophagogastroduodenoscopy (EGD) History of loop electrical excision procedure (LEEP) H/O colposcopy with cervical biopsy S/P endometrial ablation S/P dilation and curettage Family History Mother , age 84 Colorectal cancer Sudden , Onset Age: 84 sudden cardiac Cerebral aneurysm Brother Colorectal cancer Melanoma Daughter Thrombosis of inferior vena cava Father Heart disease CABG Other No family history of adverse response to anesthesia Denies family history of Ovarian cancer Breast cancer Social History Smoking Status: Former smoker Tobacco Type: Cigarettes Cigarettes Per Day: started as a teen until age 30; Second Hand Exposure: No; Do You Dip or Chew Tobacco: No; Hx Alcohol Use: Yes Alcohol type: beer and wine Alcohol Intake Frequency: 4 or More x per/Week Hx Substance Use: No Preferred Language: Puerto Rican Communication Ability: Effective Visual Impairment: Limited Hearing Ability: Normal Decal Cutter Required: No Beliefs That Will Affect Care: None marital status: Current Living Situation: Family Current Living Situation Comment: dtr currently living with pt current occupational status: retired Feels Safe at Home: Yes Safety Concerns: Feels Safe At This Time Childhood Exposure to Second-Hand Smoke: Yes Diet: regular caffeine: Yes Dental Care, Regularly: Yes Physical Activity Frequency: Daily Seatbelt Use: always Sunscreen Use: Yes Assistive Devices: CPAP and Glasses Allergies Allergies Allergy/AdvReac Type Severity Reaction Status Date / Time cefuroxime Allergy Intermediate RASH Verified 08/24/23 10:46 Home Meds Home Medications Medication Instructions Recorded Confirmed ascorbic acid (vitamin C) 500 mg 1 cap PO QAM 05/07/19 08/24/23 capsule aspirin 81 mg tablet,delayed 81 mg PO QAM 05/07/19 08/24/23 release magnesium oxide 500 mg capsule 500 mg PO PM 05/07/19 08/24/23 phytonadione (vitamin K1) 100 mcg 100 mcg PO PM 05/07/19 08/24/23 tablet zinc gluconate 50 mg tablet 50 mg PO PM 05/07/19 08/24/23 Calcium Citrate Tab 1 tab PO BID 08/23/21 08/24/23 ibuprofen 200 mg tablet 200 mg PO Q6H PRN Pain 12/13/21 08/24/23 [id number]-fish oil-vit D3 300 1 cap PO BID 12/13/21 08/24/23 mg-1,000 mg-1,000 unit capsule (Fish Oil-Vit D3) lifitegrast 5 % eye drops in a 1 drp ophthalmic (eye) BID 03/23/22 08/24/23 dropperette (Xiidra) cholecalciferol (vitamin D3) 125 125 mcg PO QAM 04/28/22 08/24/23 mcg (5,000 unit) capsule folic acid-vit B6-vit B12 0.8 1 tab PO QPM 04/28/22 08/24/23 mg-50 mg-100 mcg tablet (Homocysteine Formula) lactobacillus combination no.4 3 3,000 mmu cells PO QPM 04/28/22 08/24/23 billion cell capsule (Probiotic) Cannabis incture 1:1 THC/CBD 0.025 mg PO 05/01/23 08/24/23 Previous Rx's Medication Instructions Recorded clindamycin HCl 150 mg capsule 600 mg (4 x 150 mg) PO .COMPLEX #4 05/01/23 (Cleocin HCl) caps Results & Data (ED) Vital Signs Vital Signs - 24 hr 10/19/23 04:15 Pulse Rate [Apical] 58 L Respiratory Rate 16 Respiratory Effort / Characteristics Non-Labored Spontaneous Respiratory Depth Normal Respiratory Pattern Regular Blood Pressure [Left Arm] 135/90 Blood Pressure Mean [Left Arm] 105 Blood Pressure Position [Left Arm] Semi-fowlers Pulse Oximetry 95 Oxygen Delivery Method Room Air Laboratory Data 10/19/23 02:48 10/19/23 02:48 Lab Results 10/19/23 Range/Units 02:48 WBC 3.74 L (4.8-10.8) K/ul RBC 3.76 L (4.20-5.40) M/uL Hgb 12.0 (12.0-16.0) g/dl Hct 34.7 L (37.0-47.0) % MCV 92.3 (80.0-100.0) fL MCH 31.9 (25.0-34.0) pg MCHC 34.6 (32.0-36.0) g/dL RDW Std Deviation 47.6 H (36.4-46.3) fL RDW Coeff of Carmen 14.0 (11.5-14.5) % Plt Count 171 (130-400) K/uL MPV 9.3 L (9.4-12.4) fL Immature Gran % (Auto) 0.3 % Neut % (Auto) 35.8 % Lymph % (Auto) 46.8 % Canyon % (Auto) 12.3 % Eos % (Auto) 4.0 % Baso % (Auto) 0.8 % Neut # (Auto) 1.34 L (1.40-6.50) K/uL Lymph # (Auto) 1.75 (1.20-3.40) K/uL Canyon # (Auto) 0.46 (0.11-0.59) K/uL Eos # (Auto) 0.15 (0.00-0.50) K/uL Baso # (Auto) 0.03 (0.00-0.20) K/uL Immature Gran # (Auto) 0.01 (0.01-0.20) K/uL PT 12.1 H (9.0-12.0) Seconds INR 1.1 (0.9-1.1) Sodium 133 L (136-145) mmol/L Potassium 3.6 (3.5-5.1) mmol/L Chloride 100 (98-107) mmol/L Carbon Dioxide 28 (21-32) mmol/L Anion Gap 5 (3-11) BUN 18 (6-23) mg/dl Creatinine 0.67 (0.6-1.2) mg/dl Est Cr Clr Drug Dosing Not Reportable Est GFR ( Amer) 99.0 ml/min Est GFR (Non-Af Amer) 85.4 ml/min BUN/Creatinine Ratio 26.9 H (10-20) Glucose 131 H (70-99(Fasting)) mg/dl Calcium 8.6 (8.6-10.3) mg/dl Magnesium 1.9 (1.7-2.4) mg/dl Total Bilirubin 0.5 (0.2-1.0) mg/dl AST 23 (13-39) U/L ALT 19 (7-52) U/L Alkaline Phosphatase 48 (34-104) U/L Troponin I High Sens 3.5 (0-14) pg/ml Total Protein 5.8 L (6.0-8.3) gm/dl Albumin 3.6 (3.4-5.0) gm/dl Globulin 2.2 L (2.5-4.0) gm/dl Albumin/Globulin Ratio 1.6 (0.9-2) Lyme Disease Screen Positive H (Negative) Blood Type A Positive Antibody Screen NEGATIVE Administered Medications Discontinued Medications Ioversol (Optiray 350 500ml) 125 ml IV ONCE ONE Stop: 10/19/23 04:21 Last Admin: 10/19/23 04:20 Dose: 115 ml Documented By: KASSANDRA Imaging Data Radiologist's Impression: Head CTA 10/19/23 02:33 CR Exam(s): CTA HEAD IV Amt: 115 ml optiray 350 EXAM: CT Angiography Head With Intravenous Contrast CLINICAL HISTORY: stroke alert TECHNIQUE: Axial computed tomographic angiography images of the head with intravenous contrast. CTDI is 26.99 mGy and DLP is 464.33 mGy-cm. Automated exposure control was utilized for the study. A dose lowering technique was utilized adhering to the principles of ALARA. MIP reconstructed images were created and reviewed. COMPARISON: No relevant prior studies available. FINDINGS: Right internal carotid artery: Mild calcified plaque in the distal right internal carotid artery with less than 20% stenosis. No aneurysm. Right anterior cerebral artery: Unremarkable. No occlusion or significant stenosis. No aneurysm. Right middle cerebral artery: Unremarkable. No occlusion or significant stenosis. No aneurysm. Right posterior cerebral artery: Unremarkable. No occlusion or significant stenosis. No aneurysm. Right vertebral artery: Unremarkable as visualized. Left internal carotid artery: No acute findings. Intracranial segment is patent with no significant stenosis. No aneurysm. Left anterior cerebral artery: Unremarkable. No occlusion or significant stenosis. No aneurysm. Left middle cerebral artery: Unremarkable. No occlusion or significant stenosis. No aneurysm. Left posterior cerebral artery: Unremarkable. No occlusion or significant stenosis. No aneurysm. Left vertebral artery: Unremarkable as visualized. Basilar artery: Unremarkable. No occlusion or significant stenosis. No aneurysm. IMPRESSION: No acute findings in the arteries of the head/brain. Communications: 10/19/23 03:10 Call Doctor Regarding Stroke, Per Dr Menendez, "Cancel CD, already spoke with " Electronically signed by: Robert Menendez MD 10/19/23 03:08 AM Discharge Plan Visit Data Chief Complaint: Stroke Alert Stated Complaint: STROKE ALERT ED Provider: Adriana Muir Discharge Problem: Stroke-like symptoms, Dizziness, Nausea & vomiting Discharge Instructions Interventions: ED Discharge Assessment Last Done: 10/19/23 04:56
[2023-10-19 05:34] LABS: Troponin I High Sensitivity 3.5 pg/ml (0-14)
[2023-10-19 06:08] LABS: Appearance Urine Clear (Clear); Bilirubin Urine Negative (Negative); Blood Urine Negative (Negative); Color Urine Dark Yellow; Glucose Urine UA Negative (Negative); Ketones Urine Negative (Negative); Leukocyte Esterase Urine Negative (Negative); Nitrite Urine Negative (Negative); Protein Urine Negative (Negative); Specific Gravity Urine > 1.045 (1.000-1.030); Urobilinogen Urine Negative (Negative)
--- NOTE | 2023-10-19 06:16 | CT Scan Report ---
Exam(s): CTA HEAD IV Amt: 115 ml optiray 350 EXAM: CT Angiography Head With Intravenous Contrast CLINICAL HISTORY: stroke alert TECHNIQUE: Axial computed tomographic angiography images of the head with intravenous contrast. CTDI is 26.99 mGy and DLP is 464.33 mGy-cm. Automated exposure control was utilized for the study. A dose lowering technique was utilized adhering to the principles of ALARA. MIP reconstructed images were created and reviewed. COMPARISON: No relevant prior studies available. FINDINGS: Right internal carotid artery: Mild calcified plaque in the distal right internal carotid artery with less than 20% stenosis. No aneurysm. Right anterior cerebral artery: Unremarkable. No occlusion or significant stenosis. No aneurysm. Right middle cerebral artery: Unremarkable. No occlusion or significant stenosis. No aneurysm. Right posterior cerebral artery: Unremarkable. No occlusion or significant stenosis. No aneurysm. Right vertebral artery: Unremarkable as visualized. Left internal carotid artery: No acute findings. Intracranial segment is patent with no significant stenosis. No aneurysm. Left anterior cerebral artery: Unremarkable. No occlusion or significant stenosis. No aneurysm. Left middle cerebral artery: Unremarkable. No occlusion or significant stenosis. No aneurysm. Left posterior cerebral artery: Unremarkable. No occlusion or significant stenosis. No aneurysm. Left vertebral artery: Unremarkable as visualized. Basilar artery: Unremarkable. No occlusion or significant stenosis. No aneurysm. IMPRESSION: No acute findings in the arteries of the head/brain. Communications: 10/19/23 03:10 Call Doctor Regarding Stroke, Per Dr Menendez, "Cancel CD, already spoke with " Electronically signed by: Robert Menendez MD 10/19/23 03:08 AM
[2023-10-19 06:23] LABS: Lyme Screen Rflx Confirmation Positive (Negative)
--- NOTE | 2023-10-19 06:41 | CT Scan Report ---
Exam(s): CT HEAD Without Contrast EXAM: CT Head Without Intravenous Contrast CLINICAL HISTORY: stroke alert TECHNIQUE: Axial computed tomography images of the head/brain without intravenous contrast. CTDI is 37.12 mGy and DLP is 702.46 mGy-cm. Automated exposure control was utilized for the study. A dose lowering technique was utilized adhering to the principles of ALARA. COMPARISON: No relevant prior studies available. FINDINGS: Brain: Mild periventricular white matter low density consistent with chronic small vessel disease and/or senescent changes. No acute large vessel infarct or intracranial hemorrhage is seen. Ventricles: Unremarkable. No ventriculomegaly. Bones/joints: Unremarkable. No acute fracture. Soft tissues: Unremarkable. Sinuses: Unremarkable as visualized. No acute sinusitis. Mastoid air cells: Unremarkable as visualized. No mastoid effusion. IMPRESSION: Mild periventricular white matter low density consistent with chronic small vessel disease and/or senescent changes. No acute large vessel infarct or intracranial hemorrhage is seen. Communications: 10/19/23 02:57 Call Doctor Regarding Stroke, called FRANKLIN Peña on 10/18 02:57 (-04:00) Electronically signed by: Robert Menendez MD 10/19/23 02:54 AM
--- NOTE | 2023-10-19 06:41 | CT Scan Report ---
Exam(s): CTA NECK With Contrast IV Amt: 115 ml optiray 350 EXAM: CT Angiography Neck With Intravenous Contrast CLINICAL HISTORY: stroke alert TECHNIQUE: Routine carotid CT angiography protocol was performed with intravenous contrast. NASCET criteria using the distal ICAs for comparison were used for evaluation of stenoses. CTDI is 26.99 mGy and DLP is 464.83 mGy-cm. Automated exposure control was utilized for the study. A dose lowering technique was utilized adhering to the principles of ALARA. MIP reconstructed images were created and reviewed. CONTRAST: Patient received 115 ml optiray 350 of IV contrast COMPARISON: None. FINDINGS: VASCULATURE: Right common carotid artery: The proximal right common carotid artery is tortuous but widely patent. No occlusion or significant stenosis. No dissection. Right internal carotid artery: Unremarkable. Extracranial segment is patent with no occlusion or significant stenosis. No dissection. Right external carotid artery: Unremarkable. No occlusion. Right vertebral artery: Unremarkable. No occlusion or significant stenosis. No dissection. Left common carotid artery: The left common carotid artery is tortuous but widely patent. No occlusion or significant stenosis. No dissection. Left internal carotid artery: Small amount of calcified plaque in the proximal left internal carotid artery with no measurable stenosis. No dissection. Left external carotid artery: Unremarkable. No occlusion. Left vertebral artery: Unremarkable. No occlusion or significant stenosis. No dissection. Other vasculature: Multiple collateral veins over the neck base due to moderate to severe stenosis of the origin of the left brachiocephalic vein. Aorta: There is ectasia of the ascending aortic arch measuring 3.7 cm in diameter. No dissection. NECK: Bones/joints: Severe multilevel degenerative changes throughout the cervical spine which is partially ankylosed. No acute fracture or subluxation is seen. Soft tissues: Unremarkable. Lung apices: Clear. CAROTID STENOSIS REFERENCE USING NASCET CRITERIA: % ICA stenosis = (1 - narrowest ICA diameter/diameter of distal cervical ICA) x 100. Mild - <50% stenosis. Moderate - 50-69% stenosis. Severe - 70-94% stenosis. Near occlusion - 95-99% stenosis. Occluded - 100% stenosis. IMPRESSION: There is ectasia of the ascending aortic arch measuring 3.7 cm in diameter. No dissection. The common carotid arteries are mildly tortuous but widely patent. No significant stenosis involving the carotid or vertebral arteries. Electronically signed by: Robert Menendez MD 10/19/23 03:12 AM
--- NOTE | 2023-10-19 07:16 | XRay Report ---
XR chest 1V portable HISTORY: STROKE ALERT COMPARISON: Chest 08/23/2021. FINDINGS: There are low lung volumes. The heart is mildly enlarged. There is mild central pulmonary v ascular congestion without overt edema. No pleural effusions. No pneumothorax. No new focal lung cons olidations. There is a tortuous thoracic aorta. There is a right shoulder prosthesis. No acute fractu res. IMPRESSION: Cardiomegaly with mild pulmonary vascular congestion. ACT 112: Negative or not required by law. Electronically signed by: Matheus Womack M.D. 10/19/2023 7:15 AM
[2023-10-19] MEDS: ATORVASTATIN 40 MG TAB PO SCH (08:26)
[2023-10-19] MEDS: ASPIRIN 81 MG ECTAB PO SCH (08:26)
[2023-10-19] MEDS: CLOPIDOGREL BISULFATE 75 MG TAB PO SCH (08:26)
[2023-10-19] MEDS: FAMOTIDINE 20MG/5ML IV PUSH IV ONE (08:52)
[2023-10-19] MEDS: ASPIRIN CHEW 324 MG ONE (08:52)
[2023-10-19] MEDS: ONDANSETRON INJ 2 MG/ML 2 ML VIAL ONE (08:52)
[2023-10-19] MEDS: GADOBUTROL 65ML VIAL IV ONE (09:43)
--- NOTE | 2023-10-19 10:57 | Magnetic Resonance Report ---
Brain MRI WITH AND WITHOUT CONTRAST HISTORY: possible stroke, ?posterior circulation TECHNIQUE: Multiplanar multisequence MRI of the brain was performed both before and after the intrave nous administration of contrast. COMPARISON STUDY: Brain MRI 06/25/2019. Head CT 10/19/2023. FINDINGS: There is no mass, hematoma, midline shift, or acute infarct. The paranasal sinuses are kyra r. The mastoid air cells are clear. The ventricles and sulci demonstrate mild age-related involutiona l changes. Scattered foci of T2 hyperintensity seen within the periventricular and subcortical white matter are nonspecific but suggestive of mild microvascular ischemic changes. The major vascular flow voids at the skull base are well-maintained. Mild motion artifact. Prior bilateral lens replacement. Postcontrast sequences show no areas of abnormal enhancement. IMPRESSION: No acute intracranial abnormality. Scattered foci of T2 hyperintensity seen within the periventricula r and subcortical white matter are nonspecific but favor microvascular ischemic change. ACT 112: Negative or not required by law. Electronically signed by: Matheus Womack M.D. 10/19/2023 10:54 AM
--- NOTE | 2023-10-19 12:27 | Electrocardiogram Report ---
Test Reason : Blood Pressure : / mmHG Vent. Rate : 046 BPM Atrial Rate : 046 BPM P-R Int : 180 ms QRS Dur : 092 ms QT Int : 484 ms P-R-T Axes : 071 006 031 degrees QTc Int : 423 ms Sinus bradycardia Otherwise normal ECG When compared with ECG of 23-AUG-2021 16:09, T wave inversion no longer evident in Anterior leads Confirmed by Abdelrahman Wood ([id number]) on 10/19/2023 12:26:52 PM Referred By: REFERRED SELF Confirmed By:Abdelrahman Wood
--- NOTE | 2023-10-19 12:43 | Neurology Consultation ---
Date of Consultation October 19, 2023 Assessment & Plan (1) Vertigo: (2) Stroke-like symptoms: (3) History of CVA (cerebrovascular accident): (4) History of seizure: (5) MTHFR mutation: Plan This patient suffered an acute onset of severe vertigo with nausea vomiting and other symptoms earlier today. This has completely resolved by late morning. Currently, her neurologic examination is unremarkable with no focal findings, meningeal signs, or encephalopathy. There is no nystagmus or any ocular findings. The etiology of this acute event, coupled with the MRI revealing no acute stroke, seems most likely consistent with an acute inner ear event. This could be very "strokelike" in history. Nevertheless, I cannot entirely exclude a TIA. It would have to be a posterior fossa/brainstem type TIA and there really was no other associated symptoms to suggest this. CT angiography of the head and neck were unremarkable. The patient has a history of a small left parietal hemorrhagic stroke in 2016, with associated seizures. She has not had no subsequent seizures and she has been off levetiracetam for at least 4 years. She has MTHFR mutation which puts her at risk for clots. She is currently on 81 mg aspirin. Recommendations: 1. At this point, I do not have any additional neurologic testing recommendations to make at this time 2. Use meclizine as needed for vertigo. 3. Follow-up on positive Lyme (awaiting Western blot). 4. Could switch 81 mg aspirin tablet to clopidogrel 75 mg a day, on the assumption that this might have been a TIA. Overall, I spent a total of 65 minutes with this case including review of records, review of MRI films, direct evaluation the patient at bedside, and discussion of the case with the patient and RN at bedside, as well as Dr. Eden, including differential diagnosis and treatment options. History of Present Illness Reason for Consultation: Patient is a 78-year-old, who I was asked to see at the request of Dr. Eden, for neurologic consultation regarding stroke versus other. Requesting Physician: Dr. Eden Attending Physician: Jeni Eden MD History of Present Illness This patient has a history of hypertension, left ventricular hypertrophy, and sleep apnea on CPAP. She has a history of factor V Leiden and had a venous thromboembolism about 45 years ago. In the spring 2016 she had a small left parietal hemorrhagic stroke with a PFO noted on echocardiogram. There was a seizure around the time of this and she was put on levetiracetam. Over time she followed with Dr. Mckeon who last saw her in February 2020. By that time she was taken off levetiracetam and has had no seizures since. The right-sided weakness resolved early on and she really has been doing very well with no deficits or issues from a neurologic standpoint. She has been on 81 mg aspirin tablet daily. The patient had an active day on October 17. She went to bed around 2300 that evening. She woke up at 0115 on October 18 and when she got out of bed she noted severe vertigo with nausea and vomiting. She tried to walk but could not walk because of the spinning. Her legs felt weak (bilaterally and symmetrically). She did not have any arm symptoms. Things were whirling in a clockwise fashion but she did not feel pulled in any 1 particular direction. She had no tinnitus, ear pain, or hearing loss bilaterally. There was some concern about speech, but she also had a dry mouth. The patient knows that she was not confused and had no headache or pain. There was no incontinence of urine. There were no focal weakness or numbness episodes in the limbs. She arrived to the emergency room October 18 at 0415, afebrile with a pulse of 58 and regular, blood pressure 135/90, respiratory rate 16, and O2 saturation 95%. Neurologic examination in the emergency room was described as normal without focal findings. CBC and CHEM profile were unremarkable. Urinalysis was unremarkable but Lyme antibody screening test was positive. Western blot is pending. Chest x-ray showed some cardiomegaly with pulmonary vascular congestion. CT scan of the head showed old small vessel ischemic disease. CT angiography of the head and neck were largely unremarkable although there was some ectasia of the ascending aorta. MRI of the brain showed mild atrophy in general with some mild old small vessel ischemic disease. There were no acute findings or acute stroke. I reviewed these films. When I evaluated the patient around 1030 this morning, she told me that she felt "fine" with no vertigo, nausea, or other symptoms in her arms or legs. She had received 2 doses of meclizine. She denied headache or pain. She walked to the bathroom before I saw her, without any issues. Nursing reported no new problems. Allergies Allergy/AdvReac Type Severity Reaction Status Date / Time cefuroxime Allergy Intermediate RASH Verified 08/24/23 10:46 Home Medications Medication Instructions Recorded Confirmed Type ascorbic acid (vitamin C) 500 mg 1 cap PO QAM 05/07/19 10/19/23 History capsule aspirin 81 mg tablet,delayed 81 mg PO QAM 05/07/19 10/19/23 History release magnesium oxide 500 mg capsule 500 mg PO PM 05/07/19 10/19/23 History phytonadione (vitamin K1) 100 mcg 100 mcg PO PM 05/07/19 10/19/23 History tablet zinc gluconate 50 mg tablet 50 mg PO PM 05/07/19 10/19/23 History Calcium Citrate Tab 1 tab PO BID 08/23/21 10/19/23 History ibuprofen 200 mg tablet 200 mg PO Q6H PRN Pain 12/13/21 10/19/23 History hj-5-ozb-epa-fish oil-vit D3 300 1 cap PO BID 12/13/21 10/19/23 History mg-1,000 mg-1,000 unit capsule (Fish Oil-Vit D3) lifitegrast 5 % eye drops in a 1 drp ophthalmic (eye) BID 03/23/22 10/19/23 History dropperette (Xiidra) cholecalciferol (vitamin D3) 125 125 mcg PO QAM 04/28/22 10/19/23 History mcg (5,000 unit) capsule folic acid-vit B6-vit B12 0.8 1 tab PO QPM 04/28/22 10/19/23 History mg-50 mg-100 mcg tablet (Homocysteine Formula) lactobacillus combination no.4 3 3,000 mmu cells PO QPM 04/28/22 10/19/23 History billion cell capsule (Probiotic) Cannabis incture 1:1 THC/CBD 0.025 mg PO UD 05/01/23 10/19/23 History clindamycin HCl 150 mg capsule 600 mg (4 x 150 mg) PO .COMPLEX #4 05/01/23 10/19/23 Rx (Cleocin HCl) caps Patient History Medical History (Updated 10/19/23 @ 13:02 by Jose Armando Garcia MD) History of seizure last seizure 2016; does not follow with neurology saw Dr Armas, believed related to Lyme's, negative EEG and has not taken medication Actinic keratosis due to exposure to sunlight 2020 on nose Varicose vein of leg Elevated blood pressure reading home readings 120s/80s Thoracic ascending aortic aneurysm Lyme disease 10/2016 Patent foramen ovale dx 2017 with CVA, no f/u with cardio Abnormal mammogram Osteopenia Herniated intervertebral disc of lumbar spine MTHFR mutation History of CVA (cerebrovascular accident) 1999; numbness 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 which if given hormone therapy predisposes to clots) History of DVT (deep vein thrombosis) RLE with Surgical History History of radiofrequency ablation (RFA) of nerve of cervical spine History of cataract surgery History of carpal tunnel release of both wrists S/P trigger finger release History of tonsillectomy History of total shoulder replacement Rt History of colonoscopy History of esophagogastroduodenoscopy (EGD) History of loop electrical excision procedure (LEEP) H/O colposcopy with cervical biopsy S/P endometrial ablation S/P dilation and curettage Family History Mother , age 84 Colorectal cancer Sudden , Onset Age: 84 sudden cardiac Cerebral aneurysm Brother Colorectal cancer Melanoma Daughter Thrombosis of inferior vena cava Father Heart disease CABG Other No family history of adverse response to anesthesia Denies family history of Ovarian cancer Breast cancer Social History (Updated 10/19/23 @ 12:58 by Jose Armando Garcia MD) Smoking Status: Former smoker Tobacco Type: Cigarettes Age Started Using Tobacco: 17; Age Quit Using Tobacco: 32; Second Hand Exposure: No; Do You Dip or Chew Tobacco: No; Hx Alcohol Use: Yes Alcohol type: beer and wine Alcohol Intake Frequency: 4 or More x per/Week Alcohol Intake Frequency Comment: 2 drinks per day, regularly Hx Substance Use: No Preferred Language: Korean Communication Ability: Effective Visual Impairment: Limited Hearing Ability: Normal Lieutenant Governor Required: No Beliefs That Will Affect Care: None marital status: Current Living Situation: Family Current Living Situation Comment: dtr currently living with pt current occupational status: retired 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69, [employer] administration Feels Safe at Home: Yes Safety Concerns: Feels Safe At This Time Childhood Exposure to Second-Hand Smoke: Yes Diet: regular caffeine: Yes Dental Care, Regularly: Yes Physical Activity Frequency: Daily Seatbelt Use: always Sunscreen Use: Yes Assistive Devices: CPAP and Glasses Review of Systems Constitutional: + fatigue; no fever and no weakness Eyes: no diplopia, no eye pain and no worsening vision Ear, Nose, Mouth, Throat: no ear pain, no tinnitus, no hearing loss, no dizziness, no snoring, no hoarseness and no dysphagia Respiratory: no cough and no dyspnea Cardiovascular: no chest pain, no palpitations and no lightheadedness Gastrointestinal: no abdominal pain, no nausea and no vomiting Genitourinary: no dysuria, no urinary frequency and no urinary incontinence Musculoskeletal: no back pain, no neck pain, no radicular pain, no joint pain and no myalgia Integumentary: no rash and no lesions Neurologic: no gait abnormality, no localized weakness, no generalized weakness, no tingling, no numbness, no tremor(s), no abnormal movements, no headache(s), no abnormal speech, no confusion and no memory loss Psychiatric: no depression, no irritability, no anxiety, no difficulty concentrating, no confusion and no hallucinations Endocrine: no fatigue and no flushing Hematologic / Lymphatic: no easy bleeding and no easy bruising Allergy / Immunological: no urticaria and no problem reported Exam (Neuro) Physical Exam: The patient is right-handed. The patient is awake, alert, and attentive. Speech is normal without any aphasia or dysarthria. Mentation and thought processes are intact, with full orientation and normal fund of knowledge. Mood and affect are normal and appropriate. Appearance and grooming are normal. Short and long-term memory are intact. The discs are sharp with positive venous pulsations bilaterally. There are no exudates, hemorrhages, or blood vessel changes seen. Pupils are 4 mm bilaterally and reactive to light. Extraocular eye muscles are intact without nystagmus. Visual acuity and visual feliciano seem normal grossly to confrontation. There are no deficits to sensation in the face in all 3 distributions of the fif th cranial nerve bilaterally. Corneal reflexes are positive bilaterally. Facial strength and symmetry was normal bilaterally. Hearing seems intact grossly to voice and finger rub bilaterally. Palate moves well without asymmetry. There is normal sternocleidomastoid and trapezius strength bilaterally. Tongue is midline with good strength bilaterally. Neck has a full range of motion without discomfort. There are no cervical bruits bilaterally. There are no cranial or ocular bruits. Heart is without murmur. There is a regular rhythm and rate. Cervical, thoracic, and lumbar spine are nontender to palpation. Stance sitting up in bed is quite normal. With outstretched arms there is no drift. There are no resting, postural, or action tremors. There is no ataxia with finger to nose testing. There is good facility in the hands. No other abnormal involuntary movements are noted. Motor strength is 5/5 diffusely in the arms bilaterally including deltoids, biceps, triceps, brachioradialis, wrist flexors and extensors, herbarium curator, and intrinsic hand muscles. Motor strength is 5/5 diffusely in the legs bilaterally including hip flexors, quadriceps, hamstrings, gastrocnemius, tibialis anterior, tibialis posterior, and Peroneii muscles bilaterally. Toe extensors are normal and there is good bulk in the extensor digitorum brevis muscles bilaterally. The limbs have good tone without rigidity or spasticity. There is no atrophy noted in the muscles. Muscle bulk is normal, there is no tenderness to palpation, no myotonia to percussion, and no fasciculations seen. Sensory examination is intact to touch and pin throughout all 4 limbs diffusely. Reflexes are 2/4 in the biceps, triceps, brachioradialis, quadriceps, and Achilles tendons bilaterally. Toes are downgoing with plantar stimulation bilaterally. Peripheral pulses are present and of normal quality distally in all 4 limbs. There is no peripheral edema noted in the limbs. Results & Data Vital Signs (Past 12 Hours) Vital Signs Temp Pulse Pulse Resp BP Pulse Ox O2 Del Method 10/19/23 08:29 62 16 112/67 97 Room Air 10/19/23 07:54 59 L 10/19/23 07:44 61 16 120/73 94 Room Air 10/19/23 05:57 60 16 128/80 94 Room Air 10/19/23 05:35 60 16 128/80 94 Room Air 10/19/23 05:21 36.8 C 59 L 14 128/80 95 Room Air 10/19/23 04:30 59 L 16 139/87 93 Room Air 10/19/23 04:15 58 L 16 135/90 95 Room Air PG Care Time/CCT Total # of Minutes Spent Total Time Spent with Patient: Total time spent is greater than 50% in coordination of care (as documented) at patient's floor/unit and/or counseling patient: Coding Level of Care Code 33946 IN/OBS CONSULT LVL 5,80M Diagnoses Vertigo R42 Stroke-like symptoms R29.90 History of CVA (cerebrovascular accident) Z86.73 History of seizure Z87.898 MTHFR mutation Z15.89 Time Spent (min) 65
--- NOTE | 2023-10-19 13:46 | Pharmacy Report ---
- Date of Service October 19, 2023 - Pharmacy CVA/TIA Medication Review Medications to Prevent Stroke handout has been added to the patients discharge packet. Antiplatelet(s) * aspirin 81mg PO daily, clopidogrel 75mg PO daily Cholesterol * High intensity statin: atorvastatin 40 mg daily DVT Prophylaxis * SCD knee Therapeutic Anticoagulation * No history of Afib/Aflutter noted Type 2 Diabetes * Patient does not have T2DM
--- NOTE | 2023-10-19 14:14 | XCELERA ---
[id number]
--- NOTE | 2023-10-19 15:26 | Discharge Summary ---
Discharge Summary Date of Service October 19, 2023 Notes For Next Care Provider Present with acute onset of dizziness and nausea, ?slurred speech with concerns for stroke. Head CT/CTA, brain MRI, and echo all without signs of stroke. - Seen by neurology, recommend switching from ASA to plavix (ordered) - would recommend statin with hx of stroke, although noting patient refuses - 30 day telemetry monitor ordered Medication Changes From Visit stop ASA, start plavix Admission HPI Per Admitting Provider 78yo female with history of thoracic ascending aortic aneurysm, prior left parietal hemorrhagic CVA in 2017, known patent foramen ovale (noted on 2017 echo) and heterozygous Factor V Leiden mutation with prior VTE 45 years ago presenting with acute vertigo, nausea. Patient last seen well at 22:30. She woke at 01:15 and had some difficulty standing due to dizziness. Daughter states that she was holding onto the door frame for balance. She had nausea as well as slurred speech. Symptoms have been persistent, still with ongoing dizziness and nausea. No headache, fever, chills, falls or trauma. No chest pain, cough, SOB, diarrhea or abdominal pain. In the ER she is afebrile, HD stable Er Course: ASA 324mg Zofran Pepcid Principal Dx & Hospital Course #1 = Principal Diagnosis (1) Dizziness: 78yo female with prior CVA, known PFO, heterozygous Factor V gene mutation presenting with acute onset vertigo and nausea. ?Peripheral vs central cause. - Head/neck CTA: no significant stenosis - Head CT: no acute findings - brain MRI: no acute intracranial abnormality - Neurology consult - suspect vertigo, possibly TIA - recommend switching ASA to Plavix (ordered) - meclizine prn for vertigo - 10/05 HgbA1c: 5.4, lipid panel HDL 97, triglycerides 63 - patient declines statin - Echo: borderline LVH, EF 60-65%, ascending aorta 4.2cm--> no significant change from 05/2022 -PT/OT evaluation - safe to return home independently Discharge to home today with plavix and 30 day event monitor Recommend f/u with her Oil Pumper regarding TIA and PFO (2) TIA (transient ischemic attack): as above (3) Lyme disease: Hx of lyme treated in 2012 IgG +, IgM neagtive in the ER - western blot pending -f/u by PCP after discharge No further treatment for now (4) History of CVA (cerebrovascular accident): Plan Dispo: discharge to home today Discharge Exam General: NAD, very pleasant, sitting up in bed, VS as above Resp: normal respiratory effort, lungs clear to auscultation CV: RRR, no murmur, Abd: normal bowel sounds, non tender, no hepatosplenomegaly Extremities: Moves all extremities, no edema Neuro: A&O x3, no focal deficits, no facial asymmetry, UE and LE strength intact, no nystagmus Updated Medication List Medication Instructions Recorded Confirmed Type ascorbic acid (vitamin C) 500 mg 1 cap PO QAM 05/07/19 10/19/23 History capsule magnesium oxide 500 mg capsule 500 mg PO PM 05/07/19 10/19/23 History phytonadione (vitamin K1) 100 mcg 100 mcg PO PM 05/07/19 10/19/23 History tablet zinc gluconate 50 mg tablet 50 mg PO PM 05/07/19 10/19/23 History Calcium Citrate Tab 1 tab PO BID 08/23/21 10/19/23 History ibuprofen 200 mg tablet 200 mg PO Q6H PRN Pain 12/13/21 10/19/23 History eb-2-bvj-epa-fish oil-vit D3 300 1 cap PO BID 12/13/21 10/19/23 History mg-1,000 mg-1,000 unit capsule (Fish Oil-Vit D3) lifitegrast 5 % eye drops in a 1 drp ophthalmic (eye) BID 03/23/22 10/19/23 History dropperette (Xiidra) cholecalciferol (vitamin D3) 125 125 mcg PO QAM 04/28/22 10/19/23 History mcg (5,000 unit) capsule folic acid-vit B6-vit B12 0.8 1 tab PO QPM 04/28/22 10/19/23 History mg-50 mg-100 mcg tablet (Homocysteine Formula) lactobacillus combination no.4 3 3,000 mmu cells PO QPM 04/28/22 10/19/23 History billion cell capsule (Probiotic) Cannabis incture 1:1 THC/CBD 0.025 mg PO UD 05/01/23 10/19/23 History clindamycin HCl 150 mg capsule 600 mg (4 x 150 mg) PO .COMPLEX #4 05/01/23 10/19/23 Rx (Cleocin HCl) caps clopidogrel 75 mg tablet 75 mg PO QAM 30 days #30 tabs 10/19/23 Rx Hospital Stay Data Consultations 10/19/23 04:35 ED Decision to Admit Stat 10/19/23 10:00 Consult Neurology Routine Diagnostic Imagining Performed Head CT 10/19/23 02:33 CR Exam(s): CT HEAD Without Contrast EXAM: CT Head Without Intravenous Contrast CLINICAL HISTORY: stroke alert TECHNIQUE: Axial computed tomography images of the head/brain without intravenous contrast. CTDI is 37.12 mGy and DLP is 702.46 mGy-cm. Automated exposure control was utilized for the study. A dose lowering technique was utilized adhering to the principles of ALARA. COMPARISON: No relevant prior studies available. FINDINGS: Brain: Mild periventricular white matter low density consistent with chronic small vessel disease and/or senescent changes. No acute large vessel infarct or intracranial hemorrhage is seen. Ventricles: Unremarkable. No ventriculomegaly. Bones/joints: Unremarkable. No acute fracture. Soft tissues: Unremarkable. Sinuses: Unremarkable as visualized. No acute sinusitis. Mastoid air cells: Unremarkable as visualized. No mastoid effusion. IMPRESSION: Mild periventricular white matter low density consistent with chronic small vessel disease and/or senescent changes. No acute large vessel infarct or intracranial hemorrhage is seen. Communications: 10/19/23 02:57 Call Doctor Regarding Stroke, called FRANKLIN Peña on 10/18 02:57 (-04:00) Electronically signed by: Robert Menendez MD 10/19/23 02:54 AM Head CTA 10/19/23 02:33 CR Exam(s): CTA HEAD IV Amt: 115 ml optiray 350 EXAM: CT Angiography Head With Intravenous Contrast CLINICAL HISTORY: stroke alert TECHNIQUE: Axial computed tomographic angiography images of the head with intravenous contrast. CTDI is 26.99 mGy and DLP is 464.33 mGy-cm. Automated exposure control was utilized for the study. A dose lowering technique was utilized adhering to the principles of ALARA. MIP reconstructed images were created and reviewed. COMPARISON: No relevant prior studies available. FINDINGS: Right internal carotid artery: Mild calcified plaque in the distal right internal carotid artery with less than 20% stenosis. No aneurysm. Right anterior cerebral artery: Unremarkable. No occlusion or significant stenosis. No aneurysm. Right middle cerebral artery: Unremarkable. No occlusion or significant stenosis. No aneurysm. Right posterior cerebral artery: Unremarkable. No occlusion or significant stenosis. No aneurysm. Right vertebral artery: Unremarkable as visualized. Left internal carotid artery: No acute findings. Intracranial segment is patent with no significant stenosis. No aneurysm. Left anterior cerebral artery: Unremarkable. No occlusion or significant stenosis. No aneurysm. Left middle cerebral artery: Unremarkable. No occlusion or significant stenosis. No aneurysm. Left posterior cerebral artery: Unremarkable. No occlusion or significant stenosis. No aneurysm. Left vertebral artery: Unremarkable as visualized. Basilar artery: Unremarkable. No occlusion or significant stenosis. No aneurysm. IMPRESSION: No acute findings in the arteries of the head/brain. Communications: 10/19/23 03:10 Call Doctor Regarding Stroke, Per Dr Menendez, "Cancel CD, already spoke with " Electronically signed by: Robert Menendez MD 10/19/23 03:08 AM Neck CTA 10/19/23 02:33 Exam(s): CTA NECK With Contrast IV Amt: 115 ml optiray 350 EXAM: CT Angiography Neck With Intravenous Contrast CLINICAL HISTORY: stroke alert TECHNIQUE: Routine carotid CT angiography protocol was performed with intravenous contrast. NASCET criteria using the distal ICAs for comparison were used for evaluation of stenoses. CTDI is 26.99 mGy and DLP is 464.83 mGy-cm. Automated exposure control was utilized for the study. A dose lowering technique was utilized adhering to the principles of ALARA. MIP reconstructed images were created and reviewed. CONTRAST: Patient received 115 ml optiray 350 of IV contrast COMPARISON: None. FINDINGS: VASCULATURE: Right common carotid artery: The proximal right common carotid artery is tortuous but widely patent. No occlusion or significant stenosis. No dissection. Right internal carotid artery: Unremarkable. Extracranial segment is patent with no occlusion or significant stenosis. No dissection. Right external carotid artery: Unremarkable. No occlusion. Right vertebral artery: Unremarkable. No occlusion or significant stenosis. No dissection. Left common carotid artery: The left common carotid artery is tortuous but widely patent. No occlusion or significant stenosis. No dissection. Left internal carotid artery: Small amount of calcified plaque in the proximal left internal carotid artery with no measurable stenosis. No dissection. Left external carotid artery: Unremarkable. No occlusion. Left vertebral artery: Unremarkable. No occlusion or significant stenosis. No dissection. Other vasculature: Multiple collateral veins over the neck base due to moderate to severe stenosis of the origin of the left brachiocephalic vein. Aorta: There is ectasia of the ascending aortic arch measuring 3.7 cm in diameter. No dissection. NECK: Bones/joints: Severe multilevel degenerative changes throughout the cervical spine which is partially ankylosed. No acute fracture or subluxation is seen. Soft tissues: Unremarkable. Lung apices: Clear. CAROTID STENOSIS REFERENCE USING NASCET CRITERIA: % ICA stenosis = (1 - narrowest ICA diameter/diameter of distal cervical ICA) x 100. Mild - <50% stenosis. Moderate - 50-69% stenosis. Severe - 70-94% stenosis. Near occlusion - 95-99% stenosis. Occluded - 100% stenosis. IMPRESSION: There is ectasia of the ascending aortic arch measuring 3.7 cm in diameter. No dissection. The common carotid arteries are mildly tortuous but widely patent. No significant stenosis involving the carotid or vertebral arteries. Electronically signed by: Robert Menendez MD 10/19/23 03:12 AM Brain MRI 10/19/23 04:55 Brain MRI WITH AND WITHOUT CONTRAST HISTORY: possible stroke, ?posterior circulation TECHNIQUE: Multiplanar multisequence MRI of the brain was performed both before and after the intravenous administration of contrast. COMPARISON STUDY: Brain MRI 06/25/2019. Head CT 10/19/2023. FINDINGS: There is no mass, hematoma, midline shift, or acute infarct. The paranasal sinuses are clear. The mastoid air cells are clear. The ventricles and sulci demonstrate mild age-related involutional changes. Scattered foci of T2 hyperintensity seen within the periventricular and subcortical white matter are nonspecific but suggestive of mild microvascular ischemic changes. The major vascular flow voids at the skull base are well-maintained. Mild motion artifact. Prior bilateral lens replacement. Postcontrast sequences show no areas of abnormal enhancement. IMPRESSION: No acute intracranial abnormality. Scattered foci of T2 hyperintensity seen within the periventricular and subcortical white matter are nonspecific but favor microvascular ischemic change. ACT 112: Negative or not required by law. Electronically signed by: Matheus Womack M.D. 10/19/2023 10:54 AM Chest X-Ray 10/19/23 05:02 XR chest 1V portable HISTORY: STROKE ALERT COMPARISON: Chest 08/23/2021. FINDINGS: There are low lung volumes. The heart is mildly enlarged. There is mild central pulmonary vascular congestion without overt edema. No pleural effusions. No pneumothorax. No new focal lung consolidations. There is a tortuous thoracic aorta. There is a right shoulder prosthesis. No acute fractures. IMPRESSION: Cardiomegaly with mild pulmonary vascular congestion. ACT 112: Negative or not required by law. Electronically signed by: Matheus Womack M.D. 10/19/2023 7:15 AM Discharge Instructions Given to Patient (Per Discharging Provider) Ms. Thayer, You were hospitalized after abrupt onset of dizziness with associated weakness. Especially with your history, there was concern for stroke. However you und erwent a very extensive workup with Head CT/CTA, brain MRI and echocardiogram that did not show any evidence of stroke. You were also seen by the neurologist that recommend that we switch your Aspirin 91 mg to clopidogrel 75mg with the concern that it may have been a TIA ("mini-stroke") We also ordered a 30 day event monitor to make sure there was no cardiac arrhythmia that caused your symptoms. This will be mailed to your house with instructions. You had lyme testing that showed that you had lyme disease in the past, there is a secondary test, the Western Blot that looks for acute infection that was sent out. This will take several days to result, and you can contact your PCP for results. although you have refused previously, would recommend atorvastatin (cholesterol medication) for stroke prevention. CONTACT YOUR PRIMARY CARE PROVIDER if you experience any of the following: Shortness of breath or difficulty breathing Fevers or chills Feeling tired with normal activity or experiencing dizziness or fainting Difficulty following your treatment plan, or difficulty taking medications CALL 911 OR GO TO THE EMERGENCY DEPARTMENT if you experience any of the following: Severe abdominal pain or nausea/vomiting Severe chest pain, or chest pain that radiates (moves) to your jaw or arm Sudden, severe shortness of breath or difficulty breathing Thank you for allowing us to participate in your care. Total Time Total Time Spent Total Time Spent (In Minutes): Time spend day of discharge 40 minutes including direct patient care, medication reconciliation, documentation, review of labs and images, and coordination of care. Supervising Physician Co-Signing Physician Notes BLAS Supervision Note: I personally saw and examined the patient. I verified all evans points and agree with BLAS Arellano with the following exceptions and/or additions: S-Pt feeling completely back to normal, no further dizziness, no speech issues, no headache. O- Vitals reviewed Gen: [AAOx3, NAD] HEENT: [anicteric sclerae, EOMI] CV: [RRR no mgr nl S1S2] Pulm: [CTAB no wcr] Neuro: [full strength throughout] MRI brain personally reviewed A/P-78 yo female with a h/o clotting disorder, CVA, here with likely TIA. Workup negative Recommend switching ASA to Plavix but she would like to research Plavix first and see if she is willing to do so. Declines statin Discussed care with Neuro who thinks more consistent with vertigo but cannot r/o TIA Recommend f/u with Cardiology as well after 30 day event monitor COnsider f/u with Hematology also for discussion of anticoagulation in setting of clotting disorder and CVA, TIA Coding Level of Care Code INP/OBS EV SAME DAY LV 3,85MIN Diagnoses Dizziness R42 TIA (transient ischemic attack) G45.9 Lyme disease A69.20 History of CVA (cerebrovascular accident) Z86.73
[2023-10-19] MEDS ORDERED: STROKE PATIENT DISCHARGE STA (15:36)
--- NOTE | 2023-10-20 11:02 | Pharmacy Report ---
Pharmacist Stroke Counseling - Date of Service October 20, 2023 - Scope: Pharmacy has been consulted to provide medication discharge counseling for this patient admitted with [ischemic stroke] [hemorrhagic stroke] [transient ischemic attack] as per the Pharmacist Discharge Counseling for Stroke Patients Protoc ol. - Medications on Discharge: Home Medications Medication Instructions Recorded Confirmed ascorbic acid (vitamin C) 500 mg 1 cap PO QAM 05/07/19 10/19/23 capsule magnesium oxide 500 mg capsule 500 mg PO PM 05/07/19 10/19/23 phytonadione (vitamin K1) 100 mcg 100 mcg PO PM 05/07/19 10/19/23 tablet zinc gluconate 50 mg tablet 50 mg PO PM 05/07/19 10/19/23 Calcium Citrate Tab 1 tab PO BID 08/23/21 10/19/23 ibuprofen 200 mg tablet 200 mg PO Q6H PRN Pain 12/13/21 10/19/23 rx-4-cfm-epa-fish oil-vit D3 300 1 cap PO BID 12/13/21 10/19/23 mg-1,000 mg-1,000 unit capsule (Fish Oil-Vit D3) lifitegrast 5 % eye drops in a 1 drp ophthalmic (eye) BID 03/23/22 10/19/23 dropperette (Xiidra) cholecalciferol (vitamin D3) 125 125 mcg PO QAM 04/28/22 10/19/23 mcg (5,000 unit) capsule folic acid-vit B6-vit B12 0.8 1 tab PO QPM 04/28/22 10/19/23 mg-50 mg-100 mcg tablet (Homocysteine Formula) lactobacillus combination no.4 3 3,000 mmu cells PO QPM 04/28/22 10/19/23 billion cell capsule (Probiotic) Cannabis incture 1:1 THC/CBD 0.025 mg PO UD 05/01/23 10/19/23 New Rx's Medication Instructions Recorded clindamycin HCl 150 mg capsule 600 mg (4 x 150 mg) PO .COMPLEX #4 05/01/23 (Cleocin HCl) caps clopidogrel 75 mg tablet 75 mg PO QAM 30 days #30 tabs 10/19/23 - Action: The above medications, specifically ones for stroke treatment/prophylaxis, have been reviewed in detail with the patient and/or patient appliance service representative(s) prior to discharge. This includes indication, common adverse reactions, drug interactions, and medication administration. Medication counseling has been employed using the teach-back method to ensure understanding. - Outcome: The patient and/or patient appliance service representative(s) have demonstrated understanding of the medications. Additional comments: Spoke with Candy regarding medication changes. She is aware of the recommendation to stop aspirin and start Plavix, but is hesistant. She will be picking up her medications on Monday, she is currently away on a camping trip this and will continue aspirin until starting Plavix. Discussed her concerns with taking prescription medications specifically that she was constipated during her admission. Stated that constipation is not a listed side effect of Plavix, but lack of movement and diet changes while hospitalized could have caused it. Reviewed side effects and benefits of Plavix. She has a PCP appointment on Monday to follow-up from her admission. All questions answered. Thank you for allowing pharmacy to be involved in the care of this patient. Please call [phone] with any additional questions
[2023-10-21 12:21] LABS: Babesia microti DNA Not Detected (Not Detected)
[2023-10-23 10:07] LABS: Ehrlichia chaff DNA Bld Negative (Negative)
== END 2023-10-19 16:50 | disposition home or self-care (01) ==
LOC: ED 02:33 → EDINP 02:33 → SUATTDRO 04:30 → 2N 04:56